=== PATIENT | male | born 1950 | race Caucasian/White ===

== ENCOUNTER 2019-11-17 19:36 | Inpatient (IN) | payer MEDICARE, MEDICAID, SELFPAY ==
[2019-11-17 19:49] VITALS: BP 117/61; PULSE 80; RESP 18; TEMP 36.8; O2SAT 100; BMI 20.7
--- NOTE | 2019-11-17 19:57 | XR_ITS ---
PROCEDURE: XR CHEST 2V CLINICAL HISTORY: generalized weakness COMPARISON: No exams were available for comparison FINDINGS: The cardiomediastinal silhouette and pulmonary vascularity are within normal limits. No lobar consolidation or collapse. There is a an ill-defined 7 mm opacity overlying the left upper lobe at the 1st interspace. This could be due to summation density or developing nodule. CT may provide further evaluation. The remaining lungs are clear. No acute bony abnormalities. IMPRESSION: 1. No acute finding. 2. Possible left upper lobe nodule. Follow-up suggested. Dictated by: Marlon Alfaro MD 11/18/2019 05:40 Marlon Alfaro MD in [place] 11/18/2019 05:40
[2019-11-17 20:17] LABS: Chloride 95 mmol/L (98-107); Potassium 3.2 mmoL/L (3.5-5.1); Sodium 135 mmol/L (136-145)
[2019-11-17 20:19] LABS: Alanine Aminotransferase 81 U/L (12-78); Aspartate Amino Transferase 102 U/L (17-59); Creatinine Clearance Estimated 17 mL/min (50-200); Estimated Glomerular Filt Rate 16 ml/min (>60); GFR (African American) 19 ML/MIN (>60)
[2019-11-17 20:20] LABS: Albumin Level 3.5 g/dl (3.5-5.0); Albumin/Globulin Ratio 1.1 (1.1-1.8); Alkaline Phosphatase 115 U/L (38-126); Anion Gap 20.2 mEq/L (5-15); Bilirubin,Total 0.8 mg/dl (0.2-1.3); Calcium 9.1 mg/dl (8.4-10.2); Carbon Dioxide 23 mmol/L (22.0-30.0); Globulin 3.2 g/dL (1.3-3.2); Glucose 153 mg/dl (74-100); Total Protein,Serum 6.7 g/dl (6.3-8.2)
[2019-11-17 20:24] LABS: Lactic Acid 1.8 mmol/L (0.7-2.1)
--- NOTE | 2019-11-17 20:30 | CT_ITS ---
PROCEDURE: CT HEAD/BRAIN WO CON CLINICAL INDICATION: altered mental status Altered mental status, altered level of consciousness, confusion, disorientation COMPARISON: No exams were available for comparison TECHNIQUE: Axial images obtained. All CT scans at the facility use one or more dose reduction, viz: automated exposure control, ma/kV adjustment per patient size (including targeted exams where dose is matched to indication, i.e. head), or iterative reconstruction technique. FINDINGS: No midline shift, mass effect, intracranial hemorrhage, hydrocephalus, or extra-axial fluid collection is evident. The calvarium has an unremarkable appearance. No mastoid effusion. No sinus air-fluid level. IMPRESSION: No acute intracranial finding Dictated by: Marlon Alfaro MD 11/18/2019 06:15 Marlon Alfaro MD in [facility] 11/18/2019 06:15
--- NOTE | 2019-11-17 20:30 | CT_ITS ---
PROCEDURE: CT ABDOMEN PELVIS WO CON CLINICAL INDICATION: decreased appetite h/o schizophrenia r/o volvulus COMPARISON: No exams were available for comparison TECHNIQUE: Axial images obtained with sagittal and coronal reformats. All CT scans at the facility use one or more dose reduction, viz: automated exposure control, ma/kV adjustment per patient size (including targeted exams where dose is matched to indication, i.e. head), or iterative reconstruction technique. FINDINGS: Study is limited without IV and oral contrast and secondary to patient's lack of body fat. LOWER THORAX: There are mild atelectatic changes in the lung bases. In the extreme left lung base posteriorly there is an 11 mm nodular opacity. ABDOMEN & PELVIS: The liver has an unremarkable appearance. The gallbladder is mildly distended with stones. The spleen and adrenal glands are unremarkable. Pancreas is not well delineated. There is bilateral hydronephrosis and hydroureter. No renal or ureteral calculi. There is extensive urinary bladder distension. The urinary bladder measures 20 5 cm cephalad caudad, 17 cm transverse, and up to 15 cm AP.. The urinary bladder distends approximately 9 cm above the level of the umbilicus. There are central prostatic calcifications with the prostate mildly enlarged at 5 cm. There is a moderate amount of retained colonic feces throughout the colon especially in the rectal region. The rectum measures up to 9 cm transverse.. The appendix is not clearly delineated.. No acute bony anomalies. There are degenerative changes in the lumbar spine. IMPRESSION: 1. Severe urinary bladder distension with moderate bilateral hydronephrosis and hydroureter 2. Distended gallbladder with cholelithiasis. 3. Constipation with suggestion of rectal fecal impaction 4. Indeterminate 11 mm nodule left lung base. Suggest 3 month follow-up Dictated by: Marlon Alfaro MD 11/18/2019 06:25 Marlon Alfaro MD in [facility] 11/18/2019 06:25
--- NOTE | 2019-11-17 20:36 | HMH.EDWEAK ---
ED Disposition Clinical Impression: Obstructive nephropathy due to benign prostatic hyperplasia Urinary tract infection Qualifiers: Urinary tract infection type: acute cystitis Hematuria presence: with hematuria Qualified Code(s): N30.01 - Acute cystitis with hematuria Hydronephrosis Qualifiers: Hydronephrosis type: unspecified Qualified Code(s): N13.30 - Unspecified hydronephrosis Disposition: Admitted As Inpatient Condition on Discharge: Fair - Critical Care Critical Care Time: No Attestation: On 11/17/19, the high probability of a clinically significant, sudden or life threatening deterioration of the following system(s) required my full and direct attention, intervention and personal management. The time I documented below is in addition to time spent performing reported procedures but includes the following listed in this critical care notation. Medical Decision Making - Medical Records Medical records reviewed: Yes: I reviewed the patient's medical records. - Paul Inquiry Pt receiving controlled substance: No (no) Vital Signs: 11/17/19 19:49 11/17/19 20:54 11/17/19 21:45 Temperature 98.3 F Temperature Source Oral Pulse Rate [Right] 80 77 64 Respiratory Rate 18 18 18 Blood Pressure [Right Arm] 117/61 131/82 123/44 L Blood Pressure Mean [Right Arm] 79 98 70 Blood Pressure Source [Right Arm] Automatic Cuff Blood Pressure Position [Right Arm] Supine 02 Sat by Pulse Oximetry 100 97 94 L Oxygen Delivery Method Room Air Room Air Room Air - Lab Data Lab Results 11/17/19 20:05: WBC 22.8 H*, RBC 3.70 L, Hgb 11.9 L, Hct 34.4 L, MCV 92.9, MCH 32.1 H, MCHC 34.6, RDW 13.9, Plt Count 95 L, MPV 9.0, Neut % (Auto) 93.6 H, Lymph % (Auto) 2.8 L, [place] % (Auto) 3.4, Eos % (Auto) 0.0 L, Baso % (Auto) 0.1, Neut # (Auto) 21.3 H, Lymph # (Auto) 0.6 L, [place] # (Auto) 0.8, Eos # (Auto) 0.0, Baso # (Auto) 0.0, Total Counted 100, Neutrophils % (Manual) 89 H, Lymphocytes % (Manual) 10, Monocytes % (Manual) 1 L, Platelet Estimate Normal, RBC Morphology Normal 11/17/19 20:05: Sodium 135 L, Potassium 3.2 L, Chloride 95 L, Carbon Dioxide 23, Anion Gap 20.2 H, BUN 107 H*, Creatinine 3.80 H, Estimated Creat Clear 17, Estimated GFR 16 L*, Est GFR ( Amer) 19 L*, Glucose 153 H, Calcium 9.1, Total Bilirubin 0.8, AST 102 H, ALT 81 H, Alkaline Phosphatase 115, Total Protein 6.7, Albumin 3.5, Globulin 3.2, Albumin/Globulin Ratio 1.1 11/17/19 20:05: Lactate 1.8 11/17/19 20:05: Magnesium 2.7 H, Total Creatine Kinase 394 H, Lipase 24 11/17/19 20:53: Urine Color Yellow, Urine Appearance Clear, Urine pH 6.0, Ur Specific [place] 1.020, Urine Protein 2+, Urine Glucose (UA) Negative, Urine Ketones Negative, Urine Blood 3+, Urine Nitrate Negative, Urine Bilirubin Negative, Urine Urobilinogen 0.2, Ur Leukocyte Esterase 2+ A, Urine RBC 5-10, Urine WBC Tntc, Ur Squamous Epith Cells Occasional, Urine Bacteria 4+ Result diagrams: 11/17/19 20:05 11/17/19 20:05 Orders (Tests/Meds): ED MEDICATIONS Generic Name Dose Route Start Last Admin Trade Name Freq PRN Reason Stop Dose Admin Acetaminophen 500 mg 11/17/19 21:49 Tylenol 500mg Tablet PO 12/17/19 21:48 ONCE PRN Mild to Moderate Pain Sodium Chloride 1,000 mls @ 999 mls/hr 11/17/19 20:00 11/17/19 20:00 Sod Chlor 0.9% 1000ml Bag IV 11/17/19 21:00 999 mls/hr .Q1H1M NILSON Administration Sodium Chloride 1,000 mls @ 999 mls/hr 11/17/19 21:15 11/17/19 21:39 Sod Chlor 0.9% 1000ml Bag IV 11/17/19 22:15 999 mls/hr .Q1H1M NILSON Administration Sodium Chloride 1,000 mls @ 100 mls/hr 11/17/19 22:00 Sod Chlor 0.9% 1000ml Bag IV 12/17/19 21:59 .Q10H NILSON Discontinued Medications Generic Name Dose Route Start Last Admin Trade Name Freq PRN Reason Stop Dose Admin Ceftriaxone Sodium 1 gm/ 50 mls @ 100 mls/hr 11/17/19 21:00 11/17/19 21:28 Sodium Chloride IV 11/17/19 21:29 100 mls/hr ONCE ONE Administration Protocol Lidocaine HCl 10
[2019-11-17 20:49] LABS: Blood Urea Nitrogen 107 mg/dl (9-20)
--- NOTE | 2019-11-17 20:49 | ECG_ITS ---
APPROVED REPORT Exam: Resting ECG HR:77 bpm ECG Measurements Heart Rate 77 AXES MD 178 P 68 QRSd 112 QRS 22 QT 332 T -24 QTc 375 <Conclusion> Normal sinus rhythm Possible Inferior infarct, age undetermined Abnormal ECG Electronically signed by : Arnold Macias, 11/18/2019 06:31:19
[2019-11-17 20:53] LABS: Basophils % 0.1 % (0.1-2.0); Hematocrit 34.4 % (42.0-52.0); Hemoglobin 11.9 g/dL (14.1-18.0); Lymphocytes # 0.6 K/mm3 (0.7-4.5); Lymphocytes % 2.8 % (10-50); Mean Corpuscular HGB Conc 34.6 g/dL (31.8-35.4); Mean Corpuscular Hemoglobin 32.1 pg (27.0-31.2); Mean Corpuscular Volume 92.9 fl (80-94); Monocytes # 0.8 K/mm3 (0.1-1.0); Monocytes % 3.4 % (1.7-9.3); Neutrophils # 21.3 K/mm3 (1.8-7.8); Neutrophils % 93.6 % (37.0-80.0); Platelet Count 95 K/mm3 (142-424); Red Cell Distribution Width 13.9 % (11.5-17.5); White Blood Count 22.8 K/mm3 (4.8-10.8)
[2019-11-17 20:54] VITALS: BP 131/82; PULSE 77; RESP 18; O2SAT 97
[2019-11-17 20:55] LABS: Microscopic, Urine URINE MICROSCOPIC (MICROSCOPIC)
[2019-11-17 20:55] LABS: MANUAL DIFFERENTIAL MANUAL DIFFERENTIAL (MANUAL DIFF)
[2019-11-17 20:57] LABS: Appearance,Urine CLEAR (Clear); Bilirubin,Urine Negative (Negative); Blood, Urine 3+ (Negative); Color,Urine YELLOW (Yellow); Glucose,Urine (UA) Negative (Negative); Ketones,Urine Negative (Negative); Leukocyte Esterase,Urine 2+ (Negative); Nitrate,Urine Negative (Negative); Protein,Urine 2+ (Negative); Urobilinogen,Urine 0.2 EU/dl (0.2)
--- NOTE | 2019-11-17 21:03 | PC.NURSE ---
pt to ct
[2019-11-17 21:12] LABS: Creatine Kinase 394 U/L (55-170); Lipase 24 U/L (23-300); Lymphocytes % 10 % (10-50); Monocytes % 1 % (2-9); Neutrophils % 89 % (42-76); Total Cells Counted 100
[2019-11-17 21:13] LABS: Magnesium 2.7 mg/dl (1.6-2.3)
[2019-11-17 21:14] LABS: Platelet Estimate Normal; RBC Morphology Normal
[2019-11-17 21:21] LABS: Squamous Epithelial Cell,Urine Occasional #/hpf (0-5); WBC,Urine TNTC #/hpf (0-3)
[2019-11-17 21:22] LABS: Bacteria,Urine 4+ /lpf
--- NOTE | 2019-11-17 21:39 | PC.NURSE ---
Dr. Khoury paged
--- NOTE | 2019-11-17 21:39 | PC.NURSE ---
speaking with Dr. Khoury
--- NOTE | 2019-11-17 21:43 | PC.NURSE ---
2700ml emptied out of navarro at this time
--- NOTE | 2019-11-17 21:44 | PC.NURSE ---
Notified house of admission
[2019-11-17 21:45] VITALS: BP 123/44; PULSE 64; RESP 18; O2SAT 94
[2019-11-17 22:19] LABS: Coronavirus 19 IgM Antibody Negative (Negative)
[2019-11-17 22:23] LABS: Coronavirus 19 IgG Antibody Positive (Negative)
[2019-11-17 22:32] VITALS: BP 105/74; PULSE 80; RESP 18; O2SAT 94
[2019-11-17 22:50] VITALS: BP 105/74; PULSE 70; RESP 16; TEMP 36.9; O2SAT 98
[2019-11-17 23:18] VITALS: BP 112/71; PULSE 78; RESP 20; TEMP 36.9; O2SAT 94; O2SAT 96; BMI 16.1
--- NOTE | 2019-11-17 23:25 | PC.NURSE ---
PT ARRIVED TO FLOOR VIA W/C FROM ED AT 2318.
--- NOTE | 2019-11-18 00:03 | PC.NURSE ---
Pt poor historian during admission assessment. Pt unsure on what medication he takes and when asked what medical history he has pt states the usual . Unable to get pt to clarify history or medication. This RN went over code status with pt and he states he is only ok with IV fluids. Will have form signed and placed on chart.
[2019-11-18 04:00] VITALS: BP 111/56; PULSE 70; RESP 16; TEMP 37.2; O2SAT 94
[2019-11-18 05:13] VITALS: BMI 16.2
[2019-11-18 06:15] LABS: Basophils % 0.1 % (0.1-2.0); Monocytes # 0.8 K/mm3 (0.1-1.0)
[2019-11-18 06:21] LABS: Chloride 103 mmol/L (98-107); Potassium 3.2 mmoL/L (3.5-5.1); Sodium 134 mmol/L (136-145)
[2019-11-18 06:24] LABS: Anion Gap 12.2 mEq/L (5-15); Carbon Dioxide 22 mmol/L (22.0-30.0); Creatinine Clearance Estimated 17 mL/min (50-200); Estimated Glomerular Filt Rate 21 ml/min (>60); GFR (African American) 25 ML/MIN (>60)
[2019-11-18 06:25] LABS: Glucose 136 mg/dl (74-100)
[2019-11-18 06:36] LABS: Hematocrit 29.7 % (42.0-52.0); Lymphocytes # 0.6 K/mm3 (0.7-4.5); Lymphocytes % 2.9 % (10-50); Mean Corpuscular HGB Conc 34.3 g/dL (31.8-35.4); Mean Corpuscular Hemoglobin 32.2 pg (27.0-31.2); Mean Corpuscular Volume 93.9 fl (80-94); Mean Platelet Volume 9.2 fl (7.4-10.4); Monocytes % 3.8 % (1.7-9.3); Neutrophils # 20.5 K/mm3 (1.8-7.8); Neutrophils % 93.2 % (37.0-80.0); Platelet Count 79 K/mm3 (142-424); Red Blood Count 3.16 M/mm3 (4.60-6.20); Red Cell Distribution Width 14.1 % (11.5-17.5)
[2019-11-18 06:39] LABS: Hemoglobin 10.2 g/dL (14.1-18.0)
[2019-11-18 06:40] LABS: MANUAL DIFFERENTIAL MANUAL DIFFERENTIAL (MANUAL DIFF)
[2019-11-18 06:42] LABS: Calcium 7.5 mg/dl (8.4-10.2)
[2019-11-18 06:43] LABS: Blood Urea Nitrogen 94 mg/dl (9-20)
--- NOTE | 2019-11-18 07:23 | P.CONPHA_ITS ---
[facility] Pharmacy VTE Monitoring - Patient Demographics Admission date: 11/17/19 Report Date: 11/18/19 Time: 07:23 Allergies/Adverse Reactions: Patient Allergies No Known Allergies Allergy (Verified 03/28/19 10:51) Height: 1.75 m Weight: 49.555 kg Patient Problems: Current Active Problems Obstructive nephropathy due to benign prostatic hyperplasia (Acute) Urinary tract infection (Acute) Hydronephrosis (Acute) - VTE Risk Labs: VTE Related Lab Results Hgb 10.2 g/dL (14.1-18.0) L D 11/18/19 05:50 Hct 29.7 % (42.0-52.0) L 11/18/19 05:50 Plt Count 79 K/mm3 (142-424) L 11/18/19 05:50 BUN 94 mg/dl (9-20) H 11/18/19 05:50 Creatinine 3.00 mg/dl (0.66-1.25) H D 11/18/19 05:50 Estimated Creat Clear 17 mL/min (50-200) 11/18/19 05:50 Was VTE Risk Assessment Performed: Yes VTE Score: 2 VTE Risk Level: Very Low Risk - Prophylaxis VTE Prophylaxis Ordered?: Yes Types of VTE Prophylaxis: TEDS Knee High Location of Applied Device: Bilateral Lower Extremeties - VTE Diagnosis Confirmed Treatment or plan recommended: Continue Current Treatment
[2019-11-18 07:58] LABS: Lymphocytes % 5 % (10-50); Monocytes % 2 % (2-9); Neutrophils % 93 % (42-76); Platelet Estimate Moderate Decrease; Total Cells Counted 100
[2019-11-18 07:59] LABS: RBC Morphology Normal
[2019-11-18 08:00] VITALS: BP 148/69; PULSE 93; RESP 16; TEMP 37.4; O2SAT 93
--- NOTE | 2019-11-18 11:01 | HMH.PHAINT ---
MEDICATION RECONCILIATION COMPLETED ON PATIENT USING EXTERNAL FILL HISTORY FROM PHARMACY. -EDISON CHERY, ELIZAD
--- NOTE | 2019-11-18 11:09 | PC.NURSE ---
late entry 1040: received call from Ashley in lab stating that blood cx are positive for ecoli gram negative rods. 1045: called Dr. Khoury' office. Spoke to Chelo. Updated her. She will relay message to Dr. Khoury.
[2019-11-18 14:25] VITALS: BMI 16.3
--- NOTE | 2019-11-18 14:30 | PC.NURSE ---
Dr. Benavides @ [facility]. Pt to go home with navarro catheter. Dr. Benavides to perform cystoscopy next wk.
--- NOTE | 2019-11-18 14:51 | HMH.CONS ---
*Admission Date: 11/17/19 *Reason for consult:: Bladder distention and bilateral hydronephrosis *History of present illness: Schizophrenia presents with a 4-day history of weakness and failure to thrive. He is a resident of a personal shelter in [place]. Blood work showed a creatinine of 3.8 and a white count of 22,000. CT scan showed a markedly distended bladder and bilateral hydronephrosis. Brunner catheter was placed with report of [address] scan also showed the prostate was mildly enlarged at 5 cm with some prostatic calcifications. There is also moderate amount of retained colonic stool throughout the colon especially in the rectal region. Patient's creatinine is down to 3.0 today after bladder drainage. Patient is a poor historian but does give a history of prior difficulty voiding. He states he has seen a urologist before but is not sure where. He is on tamsulosin. Patient is also on oxybutynin 5 mg twice daily. [facility] History Medical History: Denies:: Cancer, Diabetes Mellitus Type 1, Diabetes Mellitus Type 2, MRSA *Have you ever received a pneumonia vaccine?: Yes *Have you received a flu vaccine this season?: Yes Other Medical History: Reports: Other (schizophrenia) Amputation: No Fractures: No - *Social History Alcohol Intake: never *Occupational Status:: disabled Housing: assisted living facility *Travel in the last 8 weeks: None Family Hx:: Unable to obtain Review of Systems - Review of Systems Review of systems:: pertinent systems reviewed and negative unless documented below Meds Home Medications Medication Instructions Recorded Confirmed Type Benztropine Mesylate [Cogentin 1mg 1 mg PO BID 03/28/19 11/17/19 History tablet] Fluticasone Propionate [Flonase 1 spray NS DAILY 03/28/19 11/17/19 History Allergy Relief NS] Hydroxychloroquine Sulfate 200 mg PO DAILY 03/28/19 11/17/19 History [Plaquenil 200mg tablet] OXcarbazepine [Oxcarbazepine] 300 mg PO BID 03/28/19 11/17/19 History Oxybutynin Chloride 5 mg PO BID 03/28/19 11/17/19 History Tamsulosin HCl 0.4 mg PO HS 03/28/19 11/17/19 History clonazePAM [Klonopin 1mg tablet] 1 mg PO TIDP PRN 03/28/19 11/18/19 History Cholecalciferol (Vitamin D3) 1,000 unit PO DAILY 11/17/19 11/17/19 History [Vitamin D3 1,000 Unit Cap] Loratadine [Claritin] 10 mg PO DAILY 11/17/19 11/17/19 History hydrOXYzine pamoate [Vistaril 25mg 25 mg PO Q8HP PRN 11/17/19 11/18/19 History capsule] Aspirin [Aspirin 81mg EC Tab] 81 mg PO DAILY 11/18/19 11/18/19 History Famotidine 40 mg PO DAILY 11/18/19 11/18/19 History Mirtazapine [Remeron] 15 mg PO HS 11/18/19 11/18/19 History OLANZapine [Zyprexa] 10 mg PO HS 11/18/19 11/18/19 History Allergies Allergy/AdvReac Type Severity Reaction Status Date / Time No Known Allergies Allergy Verified 03/28/19 10:51 Exam Vital signs and Labs for Last 24 Hours: Temp Pulse Resp BP Pulse Ox 99.4 F 93 H 16 148/69 H 93 L 11/18/19 08:00 11/18/19 08:00 11/18/19 08:00 11/18/19 08:00 11/18/19 08:00 Laboratory Results - last 24 hr 11/17/19 20:05: WBC 22.8 H*, RBC 3.70 L, Hgb 11.9 L, Hct 34.4 L, MCV 92.9, MCH 32.1 H, MCHC 34.6, RDW 13.9, Plt Count 95 L, MPV 9.0, Neut % (Auto) 93.6 H, Lymph % (Auto) 2.8 L, [place] % (Auto) 3.4, Eos % (Auto) 0.0 L, Baso % (Auto) 0.1, Neut # (Auto) 21.3 H, Lymph # (Auto) 0.6 L, [place] # (Auto) 0.8, Eos # (Auto) 0.0, Baso # (Auto) 0.0, Total Counted 100, Neutrophils % (Manual) 89 H, Lymphocytes % (Manual) 10, Monocytes % (Manual) 1 L, Platelet Estimate Normal, RBC Morphology Normal 11/17/19 20:05: Sodium 135 L, Potassium 3.2 L, Chloride 95 L, Carbon Dioxide 23, Anion Gap 20.2 H, BUN 107 H*, Creatinine 3.80 H, Estimated Creat Clear 17, Estimated GFR 16 L*, Est GFR ( Amer) 19 L*, Glucose 153 H, Calcium 9.1, Total Bilirubin 0.8, AST 102 H, ALT 81 H, Alkaline Phosphatase 115, Total Protein 6.7, Albumin 3.5, Globulin 3.2, Albumin/Globulin Ratio 1.1 11/17/19 20:05: Lactate 1.8 11/17/19
[2019-11-18 16:00] VITALS: BP 140/97; PULSE 80; RESP 18; TEMP 36.9; O2SAT 100
--- NOTE | 2019-11-18 18:41 | HMH.HP ---
*Admission Date: 11/17/19 *History of present illness: Patient is a 69-year-old male with history of schizophrenia currently taking Haldol and Klonopin presenting due to weakness and decreased p.o. intake. Patient states over the past 4 days he has had decreased p.o. intake secondary to decreased appetite. No specific abdominal pain, fever/chills, urination changes, nausea/vomiting, diarrhea/constipation. Caregiver at the bedside also states patient has had increased difficulty walking around. Typically he is able to walk on his own/with a cane and has been much slower over the past several days and has had multiple ground-level falls without any injuries sustained. Patient also currently specifically denies chest pain, shortness of breath, fever/chills, sick contacts. Patient has been in quarantine for the past 14 days. He presents from a personal assisted. CT abdomen performed in ER IMPRESSION: 1. Severe urinary bladder distension with moderate bilateral hydronephrosis and hydroureter 2. Distended gallbladder with cholelithiasis. 3. Constipation with suggestion of rectal fecal impaction 4. Indeterminate 11 mm nodule left lung base. Suggest 3 month follow-up Given iv rocephin, navarro placed, and admitted for further evaluation and treatment [facility] History Medical History: Denies:: Cancer, Diabetes Mellitus Type 1, Diabetes Mellitus Type 2, MRSA *Have you ever received a pneumonia vaccine?: Yes *Have you received a flu vaccine this season?: Yes Other Medical History: Reports: Other (schizophrenia) Amputation: No Fractures: No - *Social History Alcohol Intake: never *Occupational Status:: disabled Housing: assisted living facility *Travel in the last 8 weeks: None Family Hx:: Unable to obtain Review of Systems - Constitutional Reports weakness - Eyes Denies change in vision - ENT Reports dizziness - *Cardiovascular Denies chest pain - *Respiratory Denies cough - *Gastrointestinal Denies coffee ground vomit, Denies bright, red blood in stools - *Genitourinary Reports difficulty urinating, Reports decreased urination - *Musculoskeletal Reports abnormal walking - Integumentary/Breasts Denies yellowing of the skin - *Neurologic Reports unsteadiness, Reports weakness - Psychiatric Reports behavioral changes - Endocrine Denies increased thirst - Hematologic/Lymphatic Denies easy bleeding - Allergic/Immunologic Denies hives Meds Home Medications Medication Instructions Recorded Confirmed Type Benztropine Mesylate [Cogentin 1mg 1 mg PO BID 03/28/19 11/17/19 History tablet] Fluticasone Propionate [Flonase 1 spray NS DAILY 03/28/19 11/17/19 History Allergy Relief NS] Hydroxychloroquine Sulfate 200 mg PO DAILY 03/28/19 11/17/19 History [Plaquenil 200mg tablet] OXcarbazepine [Oxcarbazepine] 300 mg PO BID 03/28/19 11/17/19 History Oxybutynin Chloride 5 mg PO BID 03/28/19 11/17/19 History Tamsulosin HCl 0.4 mg PO HS 03/28/19 11/17/19 History clonazePAM [Klonopin 1mg tablet] 1 mg PO TIDP PRN 03/28/19 11/18/19 History Cholecalciferol (Vitamin D3) 1,000 unit PO DAILY 11/17/19 11/17/19 History [Vitamin D3 1,000 Unit Cap] Loratadine [Claritin] 10 mg PO DAILY 11/17/19 11/17/19 History hydrOXYzine pamoate [Vistaril 25mg 25 mg PO Q8HP PRN 11/17/19 11/18/19 History capsule] Aspirin [Aspirin 81mg EC Tab] 81 mg PO DAILY 11/18/19 11/18/19 History Famotidine 40 mg PO DAILY 11/18/19 11/18/19 History Mirtazapine [Remeron] 15 mg PO HS 11/18/19 11/18/19 History OLANZapine [Zyprexa] 10 mg PO HS 11/18/19 11/18/19 History Allergies Allergy/AdvReac Type Severity Reaction Status Date / Time No Known Allergies Allergy Verified 03/28/19 10:51 Exam Vital signs and Labs for Last 24 Hours: Temp Pulse Resp BP Pulse Ox 98.4 F 80 18 140/97 H 100 11/18/19 16:00 11/18/19 16:00 11/18/19 16:00 11/18/19 16:00 11/18/19 16:00 Laboratory Results - last 24
--- NOTE | 2019-11-18 19:11 | PC.NURSE ---
report given to angelique
[2019-11-18 19:53] VITALS: BP 149/80; PULSE 73; RESP 16; TEMP 36.4; O2SAT 98
--- NOTE | 2019-11-19 02:59 | PC.NURSE ---
Pt is alert to self. lungs CTA. pt denies any pain or SOA. pt has ambulated around room earlier in shift. F/C patent draining yellow urine. pt has slept quietly throughout shift.
[2019-11-19 04:00] VITALS: BP 142/89; PULSE 78; RESP 14; TEMP 36.8; O2SAT 99
[2019-11-19 04:59] VITALS: BMI 16.8
[2019-11-19 06:55] LABS: Eosinophils # 0.1 K/mm3 (0.0-0.4); Eosinophils % 0.3 % (0.1-12.0); Hematocrit 31.8 % (42.0-52.0); Hemoglobin 10.6 g/dL (14.1-18.0); Lymphocytes # 0.6 K/mm3 (0.7-4.5); Lymphocytes % 2.9 % (10-50); Mean Corpuscular HGB Conc 33.4 g/dL (31.8-35.4); Mean Corpuscular Volume 95.6 fl (80-94); Mean Platelet Volume 9.6 fl (7.4-10.4); Monocytes # 1.1 K/mm3 (0.1-1.0); Neutrophils # 19.5 K/mm3 (1.8-7.8); Neutrophils % 91.8 % (37.0-80.0); Red Blood Count 3.32 M/mm3 (4.60-6.20); Red Cell Distribution Width 14.1 % (11.5-17.5); White Blood Count 21.3 K/mm3 (4.8-10.8)
[2019-11-19 07:01] LABS: Platelet Count 42 K/mm3 (142-424)
[2019-11-19 07:02] LABS: Chloride 106 mmol/L (98-107); MANUAL DIFFERENTIAL MANUAL DIFFERENTIAL (MANUAL DIFF); Sodium 138 mmol/L (136-145)
[2019-11-19 07:04] LABS: Alanine Aminotransferase 50 U/L (12-78); Aspartate Amino Transferase 44 U/L (17-59); Blood Urea Nitrogen 62 mg/dl (9-20); Creatinine Clearance Estimated 27 mL/min (50-200); Estimated Glomerular Filt Rate 35 ml/min (>60); GFR (African American) 43 ML/MIN (>60)
[2019-11-19 07:05] LABS: Albumin Level 2.2 g/dl (3.5-5.0); Albumin/Globulin Ratio 0.9 (1.1-1.8); Alkaline Phosphatase 94 U/L (38-126); Anion Gap 11.7 mEq/L (5-15); Bilirubin,Total 0.5 mg/dl (0.2-1.3); Calcium 7.6 mg/dl (8.4-10.2); Carbon Dioxide 23 mmol/L (22.0-30.0); Globulin 2.4 g/dL (1.3-3.2); Glucose 127 mg/dl (74-100); Total Protein,Serum 4.6 g/dl (6.3-8.2)
--- NOTE | 2019-11-19 07:17 | PC.NURSE ---
received notification results of platelets of 42 reported oncoming nurse Laurita lord RN
[2019-11-19 07:21] LABS: Potassium 2.7 mmoL/L (3.5-5.1)
[2019-11-19 08:00] VITALS: BP 154/70; PULSE 80; RESP 18; TEMP 36.9; O2SAT 96
[2019-11-19 08:42] LABS: Acanthocytes 1+; Eosinophils % 3 % (0-3); Lymphocytes % 4 % (10-50); Monocytes % 5 % (2-9); Neutrophils % 88 % (42-76); Platelet Estimate Moderate Decrease; Poikilocytosis 1+; Total Cells Counted 100
--- NOTE | 2019-11-19 13:49 | HMH.ACPN2 ---
Internal Medicine - PN: Subj *Date: 11/19/19 *Time: 14:00 Interval history: clinically looking much improved more alert tmax 99.4 getting run of k renal function improving uc=non-esbl ecoli bc positive rocephin on board 2 grams qd iv Exam Vital signs and Labs for Last 24 Hours: Temp Pulse Resp BP Pulse Ox 98.4 F 80 18 154/70 H 96 11/19/19 08:00 11/19/19 08:00 11/19/19 08:00 11/19/19 08:00 11/19/19 08:00 Laboratory Results - last 24 hr 11/19/19 06:23: WBC 21.3 H*, RBC 3.32 L, Hgb 10.6 L, Hct 31.8 L, MCV 95.6 H, MCH 32.0 H, MCHC 33.4, RDW 14.1, Plt Count 42 L* D, MPV 9.6, Neut % (Auto) 91.8 H, Lymph % (Auto) 2.9 L, [place] % (Auto) 5.0, Eos % (Auto) 0.3, Baso % (Auto) 0.0 L, Neut # (Auto) 19.5 H, Lymph # (Auto) 0.6 L, [place] # (Auto) 1.1 H, Eos # (Auto) 0.1, Baso # (Auto) 0.0, Total Counted 100, Neutrophils % (Manual) 88 H, Lymphocytes % (Manual) 4 L, Monocytes % (Manual) 5, Eosinophils % (Manual) 3, Platelet Estimate Moderate decrease, Poikilocytosis 1+, Acanthocytes (Spur) 1+ 11/19/19 06:23: Sodium 138, Potassium 2.7 L*, Chloride 106, Carbon Dioxide 23, Anion Gap 11.7, BUN 62 H D, Creatinine 1.90 H D, Estimated Creat Clear 27, Estimated GFR 35 L, Est GFR ( Amer) 43 L D, Glucose 127 H, Calcium 7.6 L, Total Bilirubin 0.5, AST 44 D, ALT 50 D, Alkaline Phosphatase 94, Total Protein 4.6 L D, Albumin 2.2 L D, Globulin 2.4, Albumin/Globulin Ratio 0.9 L I & O for Last 24 hours: Intake & Output 11/16/19 11/17/19 11/18/19 11/19/19 23:59 23:59 23:59 23:59 Intake Total 1000 / 1000 3914 / 3914 2081 / 2082 Output Total 2700 / 2700 1850 / 2450 1300 / 1300 Balance -1700 / -1700 2064 / 1464 782 / 782 Weight 109 lb 4 oz 110 lb 3.698 oz 113 lb 9 oz Microbiology Reports for the Last 24 Hours: Microbiology 11/17/19 20:08 Blood Blood Culture - Preliminary Gram Negative Rods 11/17/19 20:08 Blood Blood Culture - Preliminary Gram Negative Rods 11/17/19 20:53 Urine,Clean Catch Urine Culture - Final Escherichia coli - Constitutional no acute distress, thin - *Routine HEENT Exam Head: Present: normocephalic Eye: Present: EOMI, PERRL ENT: Present: mucous membranes moist - *Routine Neck Exam Present: supple. Absent: lymphadenopathy - *Routine Respiratory Exam Present: CTA bilaterally - *Routine Cardiovascular Exam Present: RRR - *Routine Abdominal Exam Present: soft, normoactive bowel sounds. Absent: tenderness - *Routine Extremities Exam Absent: cyanosis, clubbing, edema - *Routine Skin Exam Present: warm. Absent: rash - *Routine Neurological Exam Present: alert, vision grossly intact, hearing grossly intact. Absent: facial asymmetry Assessment and Plan (1) Obstructive nephropathy due to benign prostatic hyperplasia Current visit: Yes Status: Acute Category: Medical Code(s): N40.1 - Benign prostatic hyperplasia with lower urinary tract symptoms; N13.8 - Other obstructive and reflux uropathy (2) Leukocytosis Current visit: Yes Status: Acute Category: Medical Code(s): D72.829 - Elevated white blood cell count, unspecified (3) Acute renal failure Current visit: Yes Status: Acute Category: Medical Code(s): N17.9 - Acute kidney failure, unspecified (4) Gram-negative bacteremia Current visit: Yes Status: Acute Category: Medical Code(s): R78.81 - Bacteremia (5) Urinary tract infection Current visit: Yes Status: Acute Qualifiers: Urinary tract infection type: acute cystitis Hematuria presence: with hematuria Qualified Code(s): N30.01 - Acute cystitis with hematuria Category: Medical Code(s): N39.0 - Urinary tract infection, site not specified (6) Chronic schizophrenia Current visit: No Status: Acute Category: Medical Code(s): F20.9 - Schizophrenia, unspecified (7) Protein calorie malnutrition Current visit: Yes Status: Acut
[2019-11-19 15:45] VITALS: BP 137/61; PULSE 56; RESP 18; TEMP 36.9; O2SAT 100
--- NOTE | 2019-11-19 16:33 | PC.NURSE ---
PT IS RESTING IN BED. NO COMPLAINTS OF DISCOMFORT. PT IS ALERT TO SELF/PLACE BUT COULD NOT REMEMBER THE MONTH/DAY OF THE WEEK. LUNG SOUNDS CLEAR. BOWEL SOUNDS NORMAL. VSS. EATING AND DRINKING FAIR. PHYSICIAN CORE INSPECTOR WAS NOTIFIED OF CRITICAL LAB RESULTS THIS MORNING. PHYSICIAN ORDERED A TOTAL OF 40 MEQ OF IV POTASSIUM. WILL CONTINUE TO MONITOR.
[2019-11-19 19:42] VITALS: BP 119/73; PULSE 59; RESP 18; TEMP 36.8; O2SAT 92
[2019-11-19 20:00] VITALS: O2SAT 92
[2019-11-20 04:00] VITALS: BP 146/60; PULSE 56; RESP 17; TEMP 36.7; O2SAT 96
[2019-11-20 05:00] VITALS: BMI 16.8
--- NOTE | 2019-11-20 06:47 | PC.NURSE ---
No acute changes during this shift. Brunner remains patent w/ clear, dark yellow urine.
[2019-11-20 06:55] LABS: Basophils % 0.1 % (0.1-2.0); Eosinophils # 0.2 K/mm3 (0.0-0.4); Eosinophils % 0.9 % (0.1-12.0); Hematocrit 31.1 % (42.0-52.0); Hemoglobin 10.5 g/dL (14.1-18.0); Lymphocytes # 0.7 K/mm3 (0.7-4.5); Lymphocytes % 3.5 % (10-50); Mean Corpuscular HGB Conc 33.7 g/dL (31.8-35.4); Mean Corpuscular Hemoglobin 31.5 pg (27.0-31.2); Mean Corpuscular Volume 93.4 fl (80-94); Mean Platelet Volume 10.4 fl (7.4-10.4); Monocytes # 0.8 K/mm3 (0.1-1.0); Monocytes % 4.3 % (1.7-9.3); Neutrophils # 17.8 K/mm3 (1.8-7.8); Neutrophils % 91.1 % (37.0-80.0); Red Blood Count 3.33 M/mm3 (4.60-6.20); Red Cell Distribution Width 14.3 % (11.5-17.5); White Blood Count 19.6 K/mm3 (4.8-10.8)
[2019-11-20 07:05] LABS: MANUAL DIFFERENTIAL MANUAL DIFFERENTIAL (MANUAL DIFF); Platelet Count 41 K/mm3 (142-424)
[2019-11-20 07:13] LABS: Anion Gap 6.6 mEq/L (5-15); Blood Urea Nitrogen 39 mg/dl (9-20); Calcium 7.5 mg/dl (8.4-10.2); Carbon Dioxide 27 mmol/L (22.0-30.0); Chloride 108 mmol/L (98-107); Creatinine Clearance Estimated 37 mL/min (50-200); Estimated Glomerular Filt Rate 50 ml/min (>60); GFR (African American) 61 ML/MIN (>60); Glucose 118 mg/dl (74-100); Sodium 139 mmol/L (136-145)
[2019-11-20 07:19] LABS: Potassium 2.6 mmoL/L (3.5-5.1)
[2019-11-20 07:21] LABS: Lymphocytes % 3 % (10-50); Neutrophils % 89 % (42-76); Platelet Estimate Marked Decrease; RBC Morphology Normal; Total Cells Counted 100
[2019-11-20 08:00] VITALS: BP 144/71; PULSE 64; RESP 20; TEMP 36.9; O2SAT 100
--- NOTE | 2019-11-20 09:03 | PC.NURSE ---
DURING ASSESSMENT THIS MORNING PT AMBULATED TO THE BATHROOM AND A SMALL STAGE 2 WAS NOTED TO THE COCCYX AND REDNESS TO THE BUTTOCKS. PT DID NOT WANT TO SIT UP IN THE CHAIR YESTERDAY AT ALL. AFTER PT WENT TO THE BATHROOM HE WAS ENCOURAGED TO SIT UP IN THE RECLINER MUCH POSSIBLE THIS SHIFT AND TRY TO AVOID RESTING IN THE BED DURING THE DAY AND WHILE HE WAS IN THE BED STAFF WILL ENCOURAGE PT TO TURN AND REPOSITION MUCH POSSIBLE.
--- NOTE | 2019-11-20 13:53 | HMH.ACPN2 ---
Internal Medicine - PN: Subj *Date: 11/20/19 *Time: 13:53 Interval history: uneventful night afebrile bp stable will need another run of k Exam Vital signs and Labs for Last 24 Hours: Temp Pulse Resp BP Pulse Ox 98.5 F 64 20 144/71 H 100 11/20/19 08:00 11/20/19 08:00 11/20/19 08:00 11/20/19 08:00 11/20/19 08:00 Laboratory Results - last 24 hr 11/20/19 06:30: WBC 19.6 H, RBC 3.33 L, Hgb 10.5 L, Hct 31.1 L, MCV 93.4, MCH 31.5 H, MCHC 33.7, RDW 14.3, Plt Count 41 L*, MPV 10.4, Neut % (Auto) 91.1 H, Lymph % (Auto) 3.5 L, [place] % (Auto) 4.3, Eos % (Auto) 0.9, Baso % (Auto) 0.1, Neut # (Auto) 17.8 H, Lymph # (Auto) 0.7, [place] # (Auto) 0.8, Eos # (Auto) 0.2, Baso # (Auto) 0.0, Total Counted 100, Neutrophils % (Manual) 89 H, Band Neutrophils % 8.0, Lymphocytes % (Manual) 3 L, Platelet Estimate Marked decrease, RBC Morphology Normal 11/20/19 06:30: Sodium 139, Potassium 2.6 L*, Chloride 108 H, Carbon Dioxide 27, Anion Gap 6.6, BUN 39 H D, Creatinine 1.40 H D, Estimated Creat Clear 37, Estimated GFR 50 L, Est GFR ( Amer) 61 D, Glucose 118 H, Calcium 7.5 L I & O for Last 24 hours: Intake & Output 11/17/19 11/18/19 11/19/19 11/20/19 23:59 23:59 23:59 23:59 Intake Total 1000 / 1000 3914 / 3914 3774 / 3774 1476 / 1476 Output Total 2700 / 2700 1850 / 2450 3300 / 3300 2350 / 2350 Balance -1700 / -1700 2064 / 1464 474 / 474 -874 / -874 Weight 109 lb 4 oz 110 lb 3.698 oz 113 lb 9 oz 113 lb 9.068 oz Microbiology Reports for the Last 24 Hours: Microbiology 11/17/19 20:08 Blood Blood Culture - Preliminary Escherichia coli 11/17/19 20:08 Blood Blood Culture - Preliminary Escherichia coli - Constitutional no acute distress, thin - *Routine HEENT Exam Head: Present: normocephalic Eye: Present: EOMI, PERRL ENT: Present: mucous membranes moist - *Routine Neck Exam Present: supple. Absent: lymphadenopathy - *Routine Respiratory Exam Present: CTA bilaterally - *Routine Cardiovascular Exam Present: RRR - *Routine Abdominal Exam Present: soft, normoactive bowel sounds. Absent: tenderness - *Routine Extremities Exam Absent: cyanosis, clubbing, edema - *Routine Skin Exam Present: warm. Absent: rash - *Routine Neurological Exam Present: alert, oriented X3 Assessment and Plan (1) E. coli septicemia Current visit: Yes Status: Acute Category: Medical Code(s): A41.51 - Sepsis due to Escherichia coli [E. coli] (2) Obstructive nephropathy due to benign prostatic hyperplasia Current visit: Yes Status: Acute Category: Medical Code(s): N40.1 - Benign prostatic hyperplasia with lower urinary tract symptoms; N13.8 - Other obstructive and reflux uropathy (3) Leukocytosis Current visit: Yes Status: Acute Category: Medical Code(s): D72.829 - Elevated white blood cell count, unspecified (4) Acute renal failure Current visit: Yes Status: Acute Category: Medical Code(s): N17.9 - Acute kidney failure, unspecified (5) Gram-negative bacteremia Current visit: Yes Status: Acute Category: Medical Code(s): R78.81 - Bacteremia (6) Urinary tract infection Current visit: Yes Status: Acute Qualifiers: Urinary tract infection type: acute cystitis Hematuria presence: with hematuria Qualified Code(s): N30.01 - Acute cystitis with hematuria Category: Medical Code(s): N39.0 - Urinary tract infection, site not specified (7) Chronic schizophrenia Current visit: No Status: Acute Category: Medical Code(s): F20.9 - Schizophrenia, unspecified (8) Protein calorie malnutrition Current visit: Yes Status: Acute Category: Medical Code(s): E46 - Unspecified protein-calorie malnutrition (9) Protein-calorie malnutrition, severe Current visit: Yes Status: Acute Category: Medical Code(s): E43 - Unspecified severe protein-calorie malnutrition (10) Cholelithiasis Current visit:
[2019-11-20 15:35] VITALS: BP 134/62; PULSE 89; RESP 20; TEMP 37.2; O2SAT 95
--- NOTE | 2019-11-20 18:23 | PC.NURSE ---
PT IS SITTING UP IN THE CHAIR. PT HAS AMBULATED TO THE BATHROOM AND AROUND THE ROOM THIS SHIFT. NO COMPLAINTS OF DISCOMFORT. SMALL STAGE 2 NOTED TO THE COCCYX WITH DRESSING INTACT. SHOWER AND LINEN CHANGE THIS SHIFT. LUNG SOUNDS CLEAR. BOWEL SOUNDS NORMAL. PT HAS NOT BEEN EATING MUCH THIS SHIFT BUT DID DRINK SOME VANILLA ENSURE. VSS. WILL CONTINUE TO MONITOR.
[2019-11-20 19:46] VITALS: BP 162/71; PULSE 99; RESP 16; TEMP 36.4; O2SAT 93
--- NOTE | 2019-11-21 03:45 | PC.NURSE ---
Pt slept most of this shift. Transferred from chair to bed with only standby assist. Denies shortness of air/pain. Myesha remains patent with adequate UOP.
[2019-11-21 04:00] VITALS: BP 144/66; PULSE 68; RESP 16; TEMP 36.9; O2SAT 87
[2019-11-21 05:00] VITALS: BMI 16.6
[2019-11-21 08:00] VITALS: BP 136/55; PULSE 75; RESP 16; TEMP 36.8; O2SAT 97
[2019-11-21 08:12] LABS: Basophils % 0.2 % (0.1-2.0); Eosinophils # 0.2 K/mm3 (0.0-0.4); Eosinophils % 1.2 % (0.1-12.0); Hematocrit 34.5 % (42.0-52.0); Hemoglobin 11.5 g/dL (14.1-18.0); Lymphocytes # 0.9 K/mm3 (0.7-4.5); Lymphocytes % 4.7 % (10-50); Mean Corpuscular HGB Conc 33.4 g/dL (31.8-35.4); Mean Corpuscular Hemoglobin 32.2 pg (27.0-31.2); Mean Corpuscular Volume 96.6 fl (80-94); Mean Platelet Volume 9.4 fl (7.4-10.4); Monocytes # 0.8 K/mm3 (0.1-1.0); Monocytes % 4.5 % (1.7-9.3); Neutrophils # 16.6 K/mm3 (1.8-7.8); Neutrophils % 89.5 % (37.0-80.0); Platelet Count 74 K/mm3 (142-424); Red Blood Count 3.57 M/mm3 (4.60-6.20); Red Cell Distribution Width 14.6 % (11.5-17.5); White Blood Count 18.6 K/mm3 (4.8-10.8)
[2019-11-21 08:19] LABS: MANUAL DIFFERENTIAL MANUAL DIFFERENTIAL (MANUAL DIFF)
[2019-11-21 08:30] VITALS: O2SAT 97
[2019-11-21 09:27] LABS: Lymphocytes % 5 % (10-50); Monocytes % 2 % (2-9); Neutrophils % 93 % (42-76); Platelet Estimate Normal; RBC Morphology Normal; Total Cells Counted 100
[2019-11-21 09:33] LABS: Chloride 108 mmol/L (98-107); Potassium 3.1 mmoL/L (3.5-5.1); Sodium 140 mmol/L (136-145)
[2019-11-21 09:36] LABS: Anion Gap 12.1 mEq/L (5-15); Blood Urea Nitrogen 30 mg/dl (9-20); Calcium 7.8 mg/dl (8.4-10.2); Carbon Dioxide 23 mmol/L (22.0-30.0); Creatinine Clearance Estimated 51 mL/min (50-200); Estimated Glomerular Filt Rate 74 ml/min (>60); GFR (African American) 90 ML/MIN (>60); Glucose 111 mg/dl (74-100)
--- NOTE | 2019-11-21 10:01 | HMH.ACPN ---
Internal Medicine - PN: Subj *Date: 11/21/19 *Time: 10:01 Exam Vital signs and Labs for Last 24 Hours: Temp Pulse Resp BP Pulse Ox 98.2 F 75 16 136/55 L 97 11/21/19 08:00 11/21/19 08:00 11/21/19 08:00 11/21/19 08:00 11/21/19 08:00 Laboratory Results - last 24 hr 11/21/19 07:56: WBC 18.6 H, RBC 3.57 L, Hgb 11.5 L, Hct 34.5 L, MCV 96.6 H, MCH 32.2 H, MCHC 33.4, RDW 14.6, Plt Count 74 L D, MPV 9.4, Neut % (Auto) 89.5 H, Lymph % (Auto) 4.7 L, [place] % (Auto) 4.5, Eos % (Auto) 1.2, Baso % (Auto) 0.2, Neut # (Auto) 16.6 H, Lymph # (Auto) 0.9, [place] # (Auto) 0.8, Eos # (Auto) 0.2, Baso # (Auto) 0.0, Total Counted 100, Neutrophils % (Manual) 93 H, Lymphocytes % (Manual) 5 L, Monocytes % (Manual) 2, Platelet Estimate Normal, RBC Morphology Normal 11/21/19 07:56: Sodium 140, Potassium 3.1 L, Chloride 108 H, Carbon Dioxide 23, Anion Gap 12.1, BUN 30 H, Creatinine 1.00 D, Estimated Creat Clear 51, Estimated GFR 74, Est GFR ( Amer) 90 D, Glucose 111 H, Calcium 7.8 L I & O for Last 24 hours: Intake & Output 11/18/19 11/19/19 11/20/19 11/21/19 23:59 23:59 23:59 23:59 Intake Total 3914 / 3914 3774 / 3774 2138 / 2138 1449 / 1449 Output Total 1850 / 2450 3300 / 3300 3250 / 3750 1725 / 1725 Balance 2064 / 1464 474 / 474 -1112 / -1612 -276 / -276 Weight 50 kg 51.511 kg 51.513 kg 50.944 kg Microbiology Reports for the Last 24 Hours: Microbiology 11/17/19 20:08 Blood Blood Culture - Preliminary Escherichia coli 11/17/19 20:08 Blood Blood Culture - Preliminary Escherichia coli Assessment and Plan (1) E. coli septicemia Current visit: Yes Status: Acute Category: Medical Code(s): A41.51 - Sepsis due to Escherichia coli [E. coli] (2) Obstructive nephropathy due to benign prostatic hyperplasia Current visit: Yes Status: Acute Category: Medical Code(s): N40.1 - Benign prostatic hyperplasia with lower urinary tract symptoms; N13.8 - Other obstructive and reflux uropathy (3) Leukocytosis Current visit: Yes Status: Acute Category: Medical Code(s): D72.829 - Elevated white blood cell count, unspecified (4) Acute renal failure Current visit: Yes Status: Acute Category: Medical Code(s): N17.9 - Acute kidney failure, unspecified (5) Gram-negative bacteremia Current visit: Yes Status: Acute Category: Medical Code(s): R78.81 - Bacteremia (6) Urinary tract infection Current visit: Yes Status: Acute Qualifiers: Urinary tract infection type: acute cystitis Hematuria presence: with hematuria Qualified Code(s): N30.01 - Acute cystitis with hematuria Category: Medical Code(s): N39.0 - Urinary tract infection, site not specified (7) Chronic schizophrenia Current visit: No Status: Acute Category: Medical Code(s): F20.9 - Schizophrenia, unspecified (8) Protein calorie malnutrition Current visit: Yes Status: Acute Category: Medical Code(s): E46 - Unspecified protein-calorie malnutrition (9) Protein-calorie malnutrition, severe Current visit: Yes Status: Acute Category: Medical Code(s): E43 - Unspecified severe protein-calorie malnutrition (10) Cholelithiasis Current visit: Yes Status: Acute Qualifiers: Cholelithiasis location: gallbladder Cholecystitis acuity: unspecified acuity Category: Medical Code(s): K80.20 - Calculus of gallbladder without cholecystitis without obstruction (11) Hydronephrosis Current visit: Yes Status: Acute Qualifiers: Hydronephrosis type: unspecified Qualified Code(s): N13.30 - Unspecified hydronephrosis Category: Medical Code(s): N13.30 - Unspecified hydronephrosis (12) Hypokalemia Current visit: Yes Status: Acute Category: Medical Code(s): E87.6 - Hypokalemia (13) Thrombocytopenia Current visit: Yes Status: Acute Category: Medical Code(s): D69.6 - Thrombocytopenia, unspecified (14) E. coli
--- NOTE | 2019-11-21 13:35 | HMH.ACPN2 ---
Internal Medicine - PN: Subj *Date: 11/21/19 *Time: 13:36 Interval history: clinically improving creat=1.0 alert/lucid/clear Exam Vital signs and Labs for Last 24 Hours: Temp Pulse Resp BP Pulse Ox 98.2 F 75 16 136/55 L 97 11/21/19 08:00 11/21/19 08:00 11/21/19 08:00 11/21/19 08:00 11/21/19 08:30 Laboratory Results - last 24 hr 11/21/19 07:56: WBC 18.6 H, RBC 3.57 L, Hgb 11.5 L, Hct 34.5 L, MCV 96.6 H, MCH 32.2 H, MCHC 33.4, RDW 14.6, Plt Count 74 L D, MPV 9.4, Neut % (Auto) 89.5 H, Lymph % (Auto) 4.7 L, [place] % (Auto) 4.5, Eos % (Auto) 1.2, Baso % (Auto) 0.2, Neut # (Auto) 16.6 H, Lymph # (Auto) 0.9, [place] # (Auto) 0.8, Eos # (Auto) 0.2, Baso # (Auto) 0.0, Total Counted 100, Neutrophils % (Manual) 93 H, Lymphocytes % (Manual) 5 L, Monocytes % (Manual) 2, Platelet Estimate Normal, RBC Morphology Normal 11/21/19 07:56: Sodium 140, Potassium 3.1 L, Chloride 108 H, Carbon Dioxide 23, Anion Gap 12.1, BUN 30 H, Creatinine 1.00 D, Estimated Creat Clear 51, Estimated GFR 74, Est GFR ( Amer) 90 D, Glucose 111 H, Calcium 7.8 L I & O for Last 24 hours: Intake & Output 11/18/19 11/19/19 11/20/19 11/21/19 23:59 23:59 23:59 23:59 Intake Total 3914 / 3914 3774 / 3774 2138 / 2138 1449 / 1449 Output Total 1850 / 2450 3300 / 3300 3250 / 3750 1725 / 1725 Balance 2064 / 1464 474 / 474 -1112 / -1612 -276 / -276 Weight 110 lb 3.698 oz 113 lb 9 oz 113 lb 9.068 oz 112 lb 5 oz - Constitutional no acute distress - *Routine HEENT Exam Head: Present: normocephalic Eye: Present: EOMI, PERRL ENT: Present: mucous membranes moist - *Routine Neck Exam Present: supple. Absent: lymphadenopathy - *Routine Respiratory Exam Present: CTA bilaterally - *Routine Cardiovascular Exam Present: RRR - *Routine Abdominal Exam Present: soft, normoactive bowel sounds. Absent: tenderness - *Routine Extremities Exam Absent: cyanosis, clubbing, edema - *Routine Skin Exam Present: warm. Absent: rash - *Routine Neurological Exam Present: alert, oriented X3 Assessment and Plan (1) E. coli septicemia Current visit: Yes Status: Acute Category: Medical Code(s): A41.51 - Sepsis due to Escherichia coli [E. coli] (2) Obstructive nephropathy due to benign prostatic hyperplasia Current visit: Yes Status: Acute Category: Medical Code(s): N40.1 - Benign prostatic hyperplasia with lower urinary tract symptoms; N13.8 - Other obstructive and reflux uropathy (3) Leukocytosis Current visit: Yes Status: Acute Category: Medical Code(s): D72.829 - Elevated white blood cell count, unspecified (4) Acute renal failure Current visit: Yes Status: Acute Category: Medical Code(s): N17.9 - Acute kidney failure, unspecified (5) Gram-negative bacteremia Current visit: Yes Status: Acute Category: Medical Code(s): R78.81 - Bacteremia (6) Urinary tract infection Current visit: Yes Status: Acute Qualifiers: Urinary tract infection type: acute cystitis Hematuria presence: with hematuria Qualified Code(s): N30.01 - Acute cystitis with hematuria Category: Medical Code(s): N39.0 - Urinary tract infection, site not specified (7) Chronic schizophrenia Current visit: No Status: Acute Category: Medical Code(s): F20.9 - Schizophrenia, unspecified (8) Protein calorie malnutrition Current visit: Yes Status: Acute Category: Medical Code(s): E46 - Unspecified protein-calorie malnutrition (9) Protein-calorie malnutrition, severe Current visit: Yes Status: Acute Category: Medical Code(s): E43 - Unspecified severe protein-calorie malnutrition (10) Cholelithiasis Current visit: Yes Status: Acute Qualifiers: Cholelithiasis location: gallbladder Cholecystitis acuity: unspecified acuity Category: Medical Code(s): K80.20 - Calculus of gallbladder without cholecystitis without obstruction (11) Hydronephrosis Current visit: Yes Status: Acute Qualifie
--- NOTE | 2019-11-21 14:52 | DIET.NUTRFU ---
Pt receiving protein supplements qid with good acceptance/tolerance. Intakes have been low, he was able to eat 50% of breakfast. Weight is stable.
--- NOTE | 2019-11-21 15:35 | PC.NURSE ---
A&O TO NAME AND BIRTHDAY ONLY. PT HAS TOLERATED ROOM AIR WELL THROUGHOUT SHIFT. RESPIRATIONS REGULAR AND UNLABORED. LUNG SOUNDS DIMINISHED THROUGHOUT. +2 PULSES NOTED THROUGHOUT. NO EDEMA NOTED. HAND PRIVATE BRANCH EXCHANGE SERVICE ADVISOR EQUAL. ACTIVE BOWEL SOUNDS HEARD IN ALL 4 QUADRANTS. SOFT AND NONTENDER. PT HAD 2 BM THUS FAR. ONE WAS FORMED AND ONE WAS DIARRHEA. PT WALKS TO BATHROOM W 1 PERSON ASSIST. PT TOLERATES WELL. SELBY CATH IN PLACE W CLEAR YELLOW URINE FLOWING FREELY INTO CATHETER BAG. NO KINKS NOTED. STAGE 2 PRESSURE ULCER NOTED TO COCCYX. POLYNEM IN PLACE. PT HAS BEEN ENCOURAGED TO REPOSITION IN THE BED EVERY 2 HOURS. NO REPORT OF PAIN OR SOB THROUGHOUT SHIFT. NS INFUSING AT 100ML/HR. PT IS CURRENTLY LYING IN BED. CALL LIGHT WITHIN REACH. BED IN LOWEST POSITION. VSS. WILL CONTINUE TO MONITOR.
[2019-11-21 16:00] VITALS: BP 120/42; PULSE 62; RESP 19; TEMP 37; O2SAT 97
--- NOTE | 2019-11-21 19:09 | PC.NURSE ---
report given to angelique
[2019-11-21 20:00] VITALS: BP 146/73; PULSE 66; RESP 18; TEMP 36.8; O2SAT 94
[2019-11-22 03:56] VITALS: BP 160/80; PULSE 74; RESP 16; TEMP 37.2; O2SAT 96
--- NOTE | 2019-11-22 04:11 | PC.NURSE ---
Pt alert to self and time. lungs diminished throughout. Pt denies any pain or SOA. F/C patent draining clear yellow urine. Dressing in place on stage 2 on coccyx c/d/i. pt encourage to repositioned throughout shift. pt has slept quietly this shift.
[2019-11-22 05:00] VITALS: BMI 17.2
[2019-11-22 06:40] LABS: Eosinophils % 1.2 % (0.1-12.0)
[2019-11-22 06:51] LABS: Basophils % 0.1 % (0.1-2.0); Eosinophils # 0.2 K/mm3 (0.0-0.4); Hematocrit 28.9 % (42.0-52.0); Lymphocytes # 1.1 K/mm3 (0.7-4.5); Lymphocytes % 5.4 % (10-50); Mean Corpuscular Hemoglobin 31.2 pg (27.0-31.2); Mean Corpuscular Volume 94.6 fl (80-94); Mean Platelet Volume 8.4 fl (7.4-10.4); Monocytes # 0.7 K/mm3 (0.1-1.0); Monocytes % 3.8 % (1.7-9.3); Neutrophils # 17.5 K/mm3 (1.8-7.8); Neutrophils % 89.6 % (37.0-80.0); Platelet Count 123 K/mm3 (142-424); Red Blood Count 3.05 M/mm3 (4.60-6.20); Red Cell Distribution Width 14.7 % (11.5-17.5); White Blood Count 19.6 K/mm3 (4.8-10.8)
[2019-11-22 06:58] LABS: Chloride 110 mmol/L (98-107); Sodium 142 mmol/L (136-145)
[2019-11-22 06:59] LABS: Hemoglobin 9.5 g/dL (14.1-18.0)
[2019-11-22 07:00] LABS: MANUAL DIFFERENTIAL MANUAL DIFFERENTIAL (MANUAL DIFF)
[2019-11-22 07:01] LABS: Blood Urea Nitrogen 24 mg/dl (9-20); Creatinine Clearance Estimated 53 mL/min (50-200); Estimated Glomerular Filt Rate 74 ml/min (>60); GFR (African American) 90 ML/MIN (>60)
[2019-11-22 07:02] LABS: Anion Gap 4.9 mEq/L (5-15); Calcium 7.5 mg/dl (8.4-10.2); Carbon Dioxide 30 mmol/L (22.0-30.0); Glucose 105 mg/dl (74-100)
[2019-11-22 07:33] LABS: Potassium 2.9 mmoL/L (3.5-5.1)
--- NOTE | 2019-11-22 07:33 | PC.NURSE ---
received call from lab ([facility]) with critical potassium level of 2.9. Dr. Peng burns.
[2019-11-22 07:46] LABS: Eosinophils % 2 % (0-3); Lymphocytes % 5 % (10-50); Monocytes % 3 % (2-9); Neutrophils % 90 % (42-76); Platelet Estimate Slight Decrease; Total Cells Counted 100
[2019-11-22 07:47] LABS: RBC Morphology Normal
[2019-11-22 08:00] VITALS: BP 106/66; PULSE 78; RESP 16; TEMP 36.5; O2SAT 95
--- NOTE | 2019-11-22 09:38 | HMH.ACPN2 ---
Internal Medicine - PN: Subj *Date: 11/22/19 *Time: 17:22 Interval history: 69-year-old male patient sitting up in bed respirations easy even, he reports he did have a good night. Potassium today 2.9 he is receiving 20 mEq of potassium p.o. twice daily, additionally ordered 20 low mEq IV x2. Explained to patient we look towards discharge tomorrow as long as we can keep his electrolyte status normal. Blood cultures x2 and urine culture all grew E. coli he is receiving ceftriaxone per IV. Exam Vital signs and Labs for Last 24 Hours: Temp Pulse Resp BP Pulse Ox 97.7 F 78 16 106/66 L 95 11/22/19 08:00 11/22/19 08:00 11/22/19 08:00 11/22/19 08:00 11/22/19 08:00 Laboratory Results - last 24 hr 11/21/19 07:56: Carbon Dioxide 23, Anion Gap 12.1, BUN 30 H, Creatinine 1.00 D, Estimated Creat Clear 51, Estimated GFR 74, Est GFR ( Amer) 90 D, Glucose 111 H, Calcium 7.8 L 11/22/19 05:55: WBC 19.6 H, RBC 3.05 L, Hgb 9.5 L D, Hct 28.9 L, MCV 94.6 H, MCH 31.2, MCHC 33.0, RDW 14.7, Plt Count 123 L D, MPV 8.4, Neut % (Auto) 89.6 H, Lymph % (Auto) 5.4 L, [place] % (Auto) 3.8, Eos % (Auto) 1.2, Baso % (Auto) 0.1, Neut # (Auto) 17.5 H, Lymph # (Auto) 1.1, [place] # (Auto) 0.7, Eos # (Auto) 0.2, Baso # (Auto) 0.0, Total Counted 100, Neutrophils % (Manual) 90 H, Lymphocytes % (Manual) 5 L, Monocytes % (Manual) 3, Eosinophils % (Manual) 2, Platelet Estimate Slight decrease, RBC Morphology Normal 11/22/19 05:55: Sodium 142, Potassium 2.9 L*, Chloride 110 H, Carbon Dioxide 30 D, Anion Gap 4.9 L, BUN 24 H, Creatinine 1.00, Estimated Creat Clear 53, Estimated GFR 74, Est GFR ( Amer) 90, Glucose 105 H, Calcium 7.5 L I & O for Last 24 hours: Intake & Output 11/19/19 11/20/19 11/21/19 11/22/19 23:59 23:59 23:59 23:59 Intake Total 3774 / 3774 2138 / 2138 4056 / 4056 1404 / 1404 Output Total 3300 / 3300 3250 / 3750 1725 / 1725 1700 / 1700 Balance 474 / 474 -1112 / -1612 2331 / 2331 -296 / -296 Weight 113 lb 9 oz 113 lb 9.068 oz 112 lb 5 oz 116 lb - Constitutional no acute distress - *Routine HEENT Exam Head: Present: normocephalic. Absent: scalp tenderness ENT: Present: mucous membranes moist. Absent: sinus tenderness - *Routine Neck Exam Present: full ROM, trachea midline. Absent: JVD, tracheal deviation - *Routine Respiratory Exam Present: CTA bilaterally. Absent: accessory muscle use - *Routine Cardiovascular Exam Present: RRR - *Routine Abdominal Exam Present: soft, normoactive bowel sounds. Absent: tenderness, mass - *Routine Extremities Exam Present: pulses intact. Absent: clubbing, calf tenderness, tenderness - *Routine Skin Exam Present: intact, dry, warm. Absent: cyanosis, wounds - *Routine Neurological Exam Present: alert, oriented X3. Absent: altered mental status - Routine Psychiatric Exam Present: normal affect, normal thought process. Absent: suicidal ideation Assessment and Plan (1) E. coli septicemia Current visit: Yes Status: Acute Category: Medical Code(s): A41.51 - Sepsis due to Escherichia coli [E. coli] (2) Obstructive nephropathy due to benign prostatic hyperplasia Current visit: Yes Status: Acute Category: Medical Code(s): N40.1 - Benign prostatic hyperplasia with lower urinary tract symptoms; N13.8 - Other obstructive and reflux uropathy (3) Leukocytosis Current visit: Yes Status: Acute Category: Medical Code(s): D72.829 - Elevated white blood cell count, unspecified (4) Acute renal failure Current visit: Yes Status: Acute Category: Medical Code(s): N17.9 - Acute kidney failure, unspecified (5) Gram-negative bacteremia Current visit: Yes Status: Acute Category: Medical Code(s): R78.81 - Bacteremia (6) Urinary tract infection Current visit: Yes Status: Acute Qualifiers: Urinary tract infection type: acute cystitis Hematuria presence: with hematuria Qualified Code(s): N30.01 - Acute cystitis with hematuria Categ
--- NOTE | 2019-11-22 09:53 | SW/DCPLANNER ---
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 SHE SUGGESTED TO CALL [facility] FOR TRANSPORT AND STATED THEY GET THEIR MEDICATIONS THROUGH [facility] IN [place].. SHE STATED THEY CAN ACCOMMODATE A CATHETER...HOME HEALTH WILL NEED TO BE SET UP... Addendum entered by Aida Arevalo 11/23/19 10:58: ATTEMPTED TO CALL [facility] THIS MORNING TO DISCUSS PATIENTS DISCHARGE PLAN AND IF HE CAN RETURN BACK AND TO DISCUSS THE NEED FOR HIS MEDICATIONS...NO ONE ANSWERED THE PHONE..I HAVE LEFT A COUPLE OF LENGTHY MESSAGES BUT HAVE NOT HEARD BACK AT THIS POINT... WILL CONTINUE TO CALL.. Addendum entered by Meg Rosales 11/22/19 15:31: Third voice message has been left for Hue at [facility] to return my phone call. Addendum entered by Meg Rosales 11/22/19 14:12: Several attempts have been made to contact Hue at [facility]. No answer voicemails left for return phone call. Original Note: This patient currently resides at [facility]. I currently have a voicemail left with [facility] regarding discharge plans for this patient. Patient could potentially need a catheter and IV antibiotics at discharge. I will speak with [facility] once ready for discharge.
[2019-11-22 16:00] VITALS: BP 115/67; PULSE 71; RESP 16; TEMP 37; O2SAT 94
--- NOTE | 2019-11-22 17:36 | PC.NURSE ---
pt has done well this shift. No issues noted. Received (2) runs of IV Potassium 20mEq for a level of 2.9. Tolerates a reg diet, asking for Ensure regularly. Is A&Ox4 today, this has improved from yesterday. Myesha newton noted. He did not wish to get OOB today when encouraged to do so.
[2019-11-22 20:00] VITALS: BP 132/63; PULSE 76; RESP 16; TEMP 37.4; O2SAT 98
--- NOTE | 2019-11-23 03:02 | PC.NURSE ---
A&OX3 THIS SHIFT. INJECTION MOLDING MACHINE SETTER EQUAL BILAT. LUNGS NOTED CLEAR T/O AUSCULTATION. TOLERATED RA WELL. PULSES +2. CAP REFILL <3 SEC. ABDOMEN NOTED NONDISTENDED, ACTIVE BOWEL SOUNDS, SOFT AND NONTENDER PER PALPATION. SELBY CATHETER IN PLACE PATENT AND DRAINING CLEAR, YELLOW URINE. NO S/S OF INFECTION AT BITA SITE, BITA AREA CDI. PT REPORTED FEELING ANXIOUS AT BEGINNING OF SHIFT, REQUESTED PRN CLONAZEPAM, ADMINISTERED PER MAY, ON REASSESSMENT PT NOTED RESTING IN BED WITH EYES CLOSED. OFFERED TO REPOSITION/TURN PT IN BED, PT REFUSED. VSS. WILL CONTINUE TO MONITOR.
[2019-11-23 04:00] VITALS: BP 156/72; PULSE 75; RESP 17; TEMP 37.5; O2SAT 98
[2019-11-23 04:58] VITALS: BMI 17.5
[2019-11-23 06:42] LABS: Chloride 109 mmol/L (98-107); Potassium 3.9 mmoL/L (3.5-5.1); Sodium 142 mmol/L (136-145)
[2019-11-23 06:45] LABS: Anion Gap 7.9 mEq/L (5-15); Blood Urea Nitrogen 24 mg/dl (9-20); Carbon Dioxide 29 mmol/L (22.0-30.0); Creatinine Clearance Estimated 54 mL/min (50-200); Estimated Glomerular Filt Rate 74 ml/min (>60); GFR (African American) 90 ML/MIN (>60)
[2019-11-23 06:46] LABS: Basophils # 0.1 K/mm3 (0-0.2); Basophils % 0.3 % (0.1-2.0); Calcium 7.5 mg/dl (8.4-10.2); Eosinophils # 0.2 K/mm3 (0.0-0.4); Eosinophils % 1.2 % (0.1-12.0); Glucose 107 mg/dl (74-100); Hematocrit 28.2 % (42.0-52.0); Hemoglobin 9.1 g/dL (14.1-18.0); Lymphocytes # 1.1 K/mm3 (0.7-4.5); Mean Corpuscular HGB Conc 32.4 g/dL (31.8-35.4); Mean Corpuscular Hemoglobin 31.5 pg (27.0-31.2); Mean Corpuscular Volume 97.2 fl (80-94); Mean Platelet Volume 8.2 fl (7.4-10.4); Monocytes # 0.9 K/mm3 (0.1-1.0); Monocytes % 4.5 % (1.7-9.3); Neutrophils # 18.6 K/mm3 (1.8-7.8); Platelet Count 193 K/mm3 (142-424); Red Cell Distribution Width 14.8 % (11.5-17.5); White Blood Count 20.8 K/mm3 (4.8-10.8)
[2019-11-23 06:49] LABS: MANUAL DIFFERENTIAL MANUAL DIFFERENTIAL (MANUAL DIFF)
[2019-11-23 07:10] VITALS: BP 155/63; PULSE 92; RESP 18; TEMP 36.9; O2SAT 98
[2019-11-23 08:32] LABS: Anisocytosis 1+; Hypochromasia 1+; Lymphocytes % 7 % (10-50); Monocytes % 4 % (2-9); Neutrophils % 88 % (42-76); Total Cells Counted 100
[2019-11-23 08:33] LABS: Platelet Estimate Normal
--- NOTE | 2019-11-23 08:59 | HMH.ACPN2 ---
Internal Medicine - PN: Subj *Date: 11/23/19 *Time: 11:59 Interval history: 69-year-old male patient sitting up in bed tolerated breakfast without any difficulties. He reports he is feeling better, was informed he is going to stay at least 1 more day, he was agreeable to this. White blood cell count elevated to 20.8, sodium 142, and potassium 3.9 Exam Vital signs and Labs for Last 24 Hours: Temp Pulse Resp BP Pulse Ox 98.5 F 92 H 18 155/63 H 98 11/23/19 07:10 11/23/19 07:10 11/23/19 07:10 11/23/19 07:10 11/23/19 07:10 Laboratory Results - last 24 hr 11/23/19 06:01: WBC 20.8 H*, RBC 2.90 L, Hgb 9.1 L, Hct 28.2 L, MCV 97.2 H, MCH 31.5 H, MCHC 32.4, RDW 14.8, Plt Count 193 D, MPV 8.2, Neut % (Auto) 89.0 H, Lymph % (Auto) 5.0 L, [place] % (Auto) 4.5, Eos % (Auto) 1.2, Baso % (Auto) 0.3, Neut # (Auto) 18.6 H, Lymph # (Auto) 1.1, [place] # (Auto) 0.9, Eos # (Auto) 0.2, Baso # (Auto) 0.1, Total Counted 100, Neutrophils % (Manual) 88 H, Band Neutrophils % 1.0, Lymphocytes % (Manual) 7 L, Monocytes % (Manual) 4, Platelet Estimate Normal, Hypochromasia 1+, Anisocytosis 1+ 11/23/19 06:01: Sodium 142, Potassium 3.9 D, Chloride 109 H, Carbon Dioxide 29, Anion Gap 7.9, BUN 24 H, Creatinine 1.00, Estimated Creat Clear 54, Estimated GFR 74, Est GFR ( Amer) 90, Glucose 107 H, Calcium 7.5 L I & O for Last 24 hours: Intake & Output 11/20/19 11/21/19 11/22/19 11/23/19 23:59 23:59 23:59 23:59 Intake Total 2138 / 2138 4056 / 4056 4065 / 4065 1838 / 1838 Output Total 3250 / 3750 1725 / 1725 1700 / 2320 1420 / 1420 Balance -1112 / -1612 2331 / 2331 2365 / 1745 418 / 418 Weight 113 lb 9.068 oz 112 lb 5 oz 116 lb 118 lb 9 oz - Constitutional no acute distress - *Routine HEENT Exam Head: Present: normocephalic ENT: Present: mucous membranes moist - *Routine Neck Exam Present: full ROM, trachea midline. Absent: JVD - *Routine Respiratory Exam Present: CTA bilaterally. Absent: accessory muscle use - *Routine Cardiovascular Exam Present: RRR - *Routine Abdominal Exam Present: soft, normoactive bowel sounds. Absent: tenderness, rigid - *Routine Extremities Exam Present: pulses intact. Absent: calf tenderness - *Routine Skin Exam Present: intact, warm. Absent: jaundice - *Routine Neurological Exam Present: alert, normal reflexes - Routine Psychiatric Exam Present: normal affect Assessment and Plan (1) E. coli septicemia Current visit: Yes Status: Acute Category: Medical Code(s): A41.51 - Sepsis due to Escherichia coli [E. coli] (2) Obstructive nephropathy due to benign prostatic hyperplasia Current visit: Yes Status: Acute Category: Medical Code(s): N40.1 - Benign prostatic hyperplasia with lower urinary tract symptoms; N13.8 - Other obstructive and reflux uropathy (3) Leukocytosis Current visit: Yes Status: Acute Category: Medical Code(s): D72.829 - Elevated white blood cell count, unspecified (4) Acute renal failure Current visit: Yes Status: Acute Category: Medical Code(s): N17.9 - Acute kidney failure, unspecified (5) Gram-negative bacteremia Current visit: Yes Status: Acute Category: Medical Code(s): R78.81 - Bacteremia (6) Urinary tract infection Current visit: Yes Status: Acute Qualifiers: Urinary tract infection type: acute cystitis Hematuria presence: with hematuria Qualified Code(s): N30.01 - Acute cystitis with hematuria Category: Medical Code(s): N39.0 - Urinary tract infection, site not specified (7) Chronic schizophrenia Current visit: No Status: Acute Category: Medical Code(s): F20.9 - Schizophrenia, unspecified (8) Protein calorie malnutrition Current visit: Yes Status: Acute Category: Medical Code(s): E46 - Unspecified protein-calorie malnutrition (9) Protein-calorie malnutrition, severe Current visit: Yes Status: Acute Category: Medical Code(s): E43 - Unspecified severe protein-calorie mal
--- NOTE | 2019-11-23 09:25 | DIET.NUTRFU ---
Pt eating better- 50% and with protein supplements qid. Weight is up 2kg t/o stay- 6 days.
[2019-11-23 10:59] LABS: Osmolality, Urine 299 mOsmol/kg (.)
--- NOTE | 2019-11-23 14:50 | PC.NURSE ---
Pt has been alert and oriented this shift x 4. This am did give prn clozapam per may. Pt has been calm this shift with no c/o. Brunner in place and draining good light yellow urine output. Did offer teds and pt refused and did also encourage turning and pt will not stay off coccyx well, he says he has heartburn and has to sit up. Did also speak with Hue Cosme at [facility] and update her on pt's status. She is aware of appt for 11/25/[address] Benavides outpatient, pending d/c. Have also referred Hue to Aida Arevalo, in care management as well and provided her with number as well. Bath given this shift. Dsg changed to open area on coccyx after cleaning. Lungs cta. No edema noted.
[2019-11-23 15:13] VITALS: BP 125/72; PULSE 74; RESP 20; TEMP 36.9; O2SAT 99
--- NOTE | 2019-11-23 19:03 | PC.NURSE ---
report given to angelique
[2019-11-23 20:00] VITALS: BP 130/52; PULSE 83; RESP 20; TEMP 37.3; O2SAT 94
[2019-11-24 04:00] VITALS: BP 140/67; PULSE 75; RESP 20; TEMP 38.1; O2SAT 96
--- NOTE | 2019-11-24 04:24 | PC.NURSE ---
Pt has slept well this shift. At the beginning of shift pt had requested to take PRN clonazepam, this nurse administered pt's PRN meds per MAY. Lung sounds are clear throughout per auscultation. Brunner is draining clear yellow urine per gravity. No other changes at this time. Will continue to monitor.
[2019-11-24 05:00] VITALS: BMI 17.6
[2019-11-24 06:17] LABS: Basophils # 0.1 K/mm3 (0-0.2); Basophils % 0.4 % (0.1-2.0); Chloride 106 mmol/L (98-107); Eosinophils # 0.2 K/mm3 (0.0-0.4); Hematocrit 25.3 % (42.0-52.0); Hemoglobin 8.4 g/dL (14.1-18.0); Lymphocytes # 1.1 K/mm3 (0.7-4.5); Lymphocytes % 4.9 % (10-50); Mean Corpuscular HGB Conc 33.2 g/dL (31.8-35.4); Mean Corpuscular Hemoglobin 31.4 pg (27.0-31.2); Mean Corpuscular Volume 94.7 fl (80-94); Monocytes # 0.7 K/mm3 (0.1-1.0); Neutrophils % 90.6 % (37.0-80.0); Platelet Count 273 K/mm3 (142-424); Potassium 4.4 mmoL/L (3.5-5.1); Red Blood Count 2.67 M/mm3 (4.60-6.20); Red Cell Distribution Width 14.9 % (11.5-17.5); Sodium 139 mmol/L (136-145); White Blood Count 22.1 K/mm3 (4.8-10.8)
[2019-11-24 06:20] LABS: Anion Gap 6.4 mEq/L (5-15); Blood Urea Nitrogen 24 mg/dl (9-20); Carbon Dioxide 31 mmol/L (22.0-30.0); Creatinine Clearance Estimated 54 mL/min (50-200); Estimated Glomerular Filt Rate 74 ml/min (>60); GFR (African American) 90 ML/MIN (>60)
[2019-11-24 06:21] LABS: Calcium 7.6 mg/dl (8.4-10.2); Glucose 100 mg/dl (74-100)
[2019-11-24 06:31] LABS: MANUAL DIFFERENTIAL MANUAL DIFFERENTIAL (MANUAL DIFF)
[2019-11-24 07:17] LABS: Eosinophils % 2 % (0-3); Lymphocytes % 5 % (10-50); Monocytes % 5 % (2-9); Neutrophils % 88 % (42-76); Total Cells Counted 100
[2019-11-24 07:18] LABS: Platelet Estimate Normal; RBC Morphology Normal
[2019-11-24 08:00] VITALS: BP 152/78; PULSE 65; RESP 16; TEMP 36.9; O2SAT 98
--- NOTE | 2019-11-24 08:55 | XR_ITS ---
PROCEDURE: XR CHEST 2V CLINICAL HISTORY: increasing WBC and fever COMPARISON: CR XR CHEST 2V from 11/17/2019 FINDINGS: The cardiomediastinal silhouette and pulmonary vascularity are within normal limits. COPD with hyperinflation Small bilateral pleural effusions. Patchy density is present in the right lung base may be due to an area of atelectasis or infiltrate. There is also increased density in the retrocardiac region on the left medially suggesting an area of volume loss or consolidation. IMPRESSION: COPD with bilateral effusions with bilateral lower lobe atelectasis or infiltrate. These findings have developed since 11/17/2019 Dictated by: Marlon Alfaro MD 11/24/2019 11:16 aMrlon Alfaro MD in OV 11/24/2019 11:16
--- NOTE | 2019-11-24 09:06 | HMH.ACPN2 ---
Internal Medicine - PN: Subj *Date: 11/24/19 *Time: 08:10 Interval history: Patient states he is feeling well request to be discharged back to residential. White blood cell still elevated. Brunner draining at bedside. Patient states he ate breakfast and has no complaints at this time Exam Vital signs and Labs for Last 24 Hours: Temp Pulse Resp BP Pulse Ox 98.5 F 65 16 152/78 H 98 11/24/19 08:00 11/24/19 08:00 11/24/19 08:00 11/24/19 08:00 11/24/19 08:00 Laboratory Results - last 24 hr 11/17/19 21:32: Urine Osmolality 299 11/24/19 05:48: WBC 22.1 H*, RBC 2.67 L, Hgb 8.4 L, Hct 25.3 L, MCV 94.7 H, MCH 31.4 H, MCHC 33.2, RDW 14.9, Plt Count 273 D, MPV 8.0, Neut % (Auto) 90.6 H, Lymph % (Auto) 4.9 L, Sutter % (Auto) 3.0, Eos % (Auto) 1.0, Baso % (Auto) 0.4, Neut # (Auto) 20.0 H, Lymph # (Auto) 1.1, Sutter # (Auto) 0.7, Eos # (Auto) 0.2, Baso # (Auto) 0.1, Total Counted 100, Neutrophils % (Manual) 88 H, Lymphocytes % (Manual) 5 L, Monocytes % (Manual) 5, Eosinophils % (Manual) 2, Platelet Estimate Normal, RBC Morphology Normal 11/24/19 05:48: Sodium 139, Potassium 4.4, Chloride 106, Carbon Dioxide 31 H, Anion Gap 6.4, BUN 24 H, Creatinine 1.00, Estimated Creat Clear 54, Estimated GFR 74, Est GFR ( Amer) 90, Glucose 100, Calcium 7.6 L I & O for Last 24 hours: Intake & Output 11/21/19 11/22/19 11/23/19 11/24/19 11:59 11:59 11:59 11:59 Intake Total 2111 / 2111 4011 / 4011 4499 / 4499 3241 / 3241 Output Total 2625 / 2625 1700 / 1700 1420 / 1420 3950 / 3950 Balance -514 / -514 2311 / 2311 3079 / 3079 -709 / -709 Weight 112 lb 5 oz 116 lb 118 lb 9 oz 119 lb 6 oz - Constitutional no acute distress - *Routine HEENT Exam Head: Present: normocephalic Eye: Present: PERRL ENT: Present: mucous membranes moist - *Routine Neck Exam Present: supple. Absent: lymphadenopathy - *Routine Respiratory Exam Present: CTA bilaterally - *Routine Cardiovascular Exam Present: RRR - *Routine Abdominal Exam Present: soft, normoactive bowel sounds. Absent: tenderness - *Routine Extremities Exam Present: normal capillary refill. Absent: cyanosis, clubbing, edema - *Routine Skin Exam Present: warm, wounds. Absent: rash Comments: stage 2 on coccyx - *Routine Neurological Exam Present: alert, oriented X3 - Routine Psychiatric Exam Present: normal affect Assessment and Plan (1) E. coli septicemia Current visit: Yes Status: Acute Category: Medical Code(s): A41.51 - Sepsis due to Escherichia coli [E. coli] (2) Obstructive nephropathy due to benign prostatic hyperplasia Current visit: Yes Status: Acute Category: Medical Code(s): N40.1 - Benign prostatic hyperplasia with lower urinary tract symptoms; N13.8 - Other obstructive and reflux uropathy (3) Leukocytosis Current visit: Yes Status: Acute Category: Medical Code(s): D72.829 - Elevated white blood cell count, unspecified (4) Acute renal failure Current visit: Yes Status: Acute Category: Medical Code(s): N17.9 - Acute kidney failure, unspecified (5) Gram-negative bacteremia Current visit: Yes Status: Acute Category: Medical Code(s): R78.81 - Bacteremia (6) Urinary tract infection Current visit: Yes Status: Acute Qualifiers: Urinary tract infection type: acute cystitis Hematuria presence: with hematuria Qualified Code(s): N30.01 - Acute cystitis with hematuria Category: Medical Code(s): N39.0 - Urinary tract infection, site not specified (7) Chronic schizophrenia Current visit: No Status: Acute Category: Medical Code(s): F20.9 - Schizophrenia, unspecified (8) Protein calorie malnutrition Current visit: Yes Status: Acute Category: Medical Code(s): E46 - Unspecified protein-calorie malnutrition (9) Protein-calorie malnutrition, severe Current visit: Yes Status: Acute Category: Medical Code(s): E43 - Unspecified severe protein-calorie malnutrition (10) Cholelit
--- NOTE | 2019-11-24 11:41 | PC.NURSE ---
PT has been very hungry this morning, after refusing breakfast he has eaten dalton crackers and peanut butter, a snickers bar, drank a Pepsi and chocolate milk.
--- NOTE | 2019-11-24 12:36 | HMH.CONS ---
*Admission Date: 11/17/19 *History of present illness: chart reviewed. pt admitted on 11/17/2019 with weakness. he was noted to have elevated wbc with neutrophilia and thrombocytopenia. blood cx reveal e coli bacteremia and e coli from urine. covid IgG ab +. pt was initially treated with broad spectrum abx and is going to be transitioned to levaquin at discharge. his wbc is still elevated at 22K. plts have improved. he is anemic. his creatinine was also elevated on admission and ct revealed bilateral hydronephrosis. navarro has been placed and creatinine is improving. urology also following. [facility] History Medical History: Denies:: Cancer, Diabetes Mellitus Type 1, Diabetes Mellitus Type 2, MRSA *Have you ever received a pneumonia vaccine?: Yes *Have you received a flu vaccine this season?: Yes Other Medical History: Reports: Other (schizophrenia) Amputation: No Fractures: No - *Social History Alcohol Intake: never *Occupational Status:: disabled Housing: assisted living facility *Travel in the last 8 weeks: None Family Hx:: Unable to obtain Review of Systems - *Neurologic Reports abnormal walking, Reports behavioral changes, Reports unsteadiness, Reports dizziness, Reports weakness Meds Home Medications Medication Instructions Recorded Confirmed Type Benztropine Mesylate [Cogentin 1mg 1 mg PO BID 03/28/19 11/17/19 History tablet] Fluticasone Propionate [Flonase 1 spray NS DAILY 03/28/19 11/17/19 History Allergy Relief NS] Hydroxychloroquine Sulfate 200 mg PO DAILY 03/28/19 11/17/19 History [Plaquenil 200mg tablet] OXcarbazepine [Oxcarbazepine] 300 mg PO BID 03/28/19 11/17/19 History Oxybutynin Chloride 5 mg PO BID 03/28/19 11/17/19 History Tamsulosin HCl 0.4 mg PO HS 03/28/19 11/17/19 History clonazePAM [Klonopin 1mg tablet] 1 mg PO TIDP PRN 03/28/19 11/18/19 History Cholecalciferol (Vitamin D3) 1,000 unit PO DAILY 11/17/19 11/17/19 History [Vitamin D3 1,000 Unit Cap] Loratadine [Claritin] 10 mg PO DAILY 11/17/19 11/17/19 History hydrOXYzine pamoate [Vistaril 25mg 25 mg PO Q8HP PRN 11/17/19 11/18/19 History capsule] Aspirin [Aspirin 81mg EC Tab] 81 mg PO DAILY 11/18/19 11/18/19 History Famotidine 40 mg PO DAILY 11/18/19 11/18/19 History Mirtazapine [Remeron] 15 mg PO HS 11/18/19 11/18/19 History OLANZapine [Zyprexa] 10 mg PO HS 11/18/19 11/18/19 History Allergies Allergy/AdvReac Type Severity Reaction Status Date / Time No Known Allergies Allergy Verified 03/28/19 10:51 Exam Vital signs and Labs for Last 24 Hours: Temp Pulse Resp BP Pulse Ox 98.5 F 65 16 152/78 H 98 11/24/19 08:00 11/24/19 08:00 11/24/19 08:00 11/24/19 08:00 11/24/19 08:00 Laboratory Results - last 24 hr 11/24/19 05:48: WBC 22.1 H*, RBC 2.67 L, Hgb 8.4 L, Hct 25.3 L, MCV 94.7 H, MCH 31.4 H, MCHC 33.2, RDW 14.9, Plt Count 273 D, MPV 8.0, Neut % (Auto) 90.6 H, Lymph % (Auto) 4.9 L, Barron % (Auto) 3.0, Eos % (Auto) 1.0, Baso % (Auto) 0.4, Neut # (Auto) 20.0 H, Lymph # (Auto) 1.1, Barron # (Auto) 0.7, Eos # (Auto) 0.2, Baso # (Auto) 0.1, Total Counted 100, Neutrophils % (Manual) 88 H, Lymphocytes % (Manual) 5 L, Monocytes % (Manual) 5, Eosinophils % (Manual) 2, Platelet Estimate Normal, RBC Morphology Normal 11/24/19 05:48: Sodium 139, Potassium 4.4, Chloride 106, Carbon Dioxide 31 H, Anion Gap 6.4, BUN 24 H, Creatinine 1.00, Estimated Creat Clear 54, Estimated GFR 74, Est GFR ( Amer) 90, Glucose 100, Calcium 7.6 L I & O for Last 24 hours: Intake & Output 11/22/19 11/23/19 11/24/19 11/25/19 11:59 11:59 11:59 11:59 Intake Total 4011 / 4011 4499 / 4499 3241 / 3241 Output Total 1700 / 1700 1420 / 1420 4950 / 4950 Balance 2311 / 2311 3079 / 3079 -1709 / -1709 Weight 116 lb 118 lb 9 oz 119 lb 6 oz - Constitutional no acute distress - *Routine HEENT Exam Head: Present: normocephalic Eye: Present: EOMI, PERRL ENT: Present: mucous membranes moist - *Routine Neck Exam Present: jamison
[2019-11-24 16:00] VITALS: BP 145/76; PULSE 80; RESP 18; TEMP 36.4; O2SAT 100
--- NOTE | 2019-11-24 16:24 | PC.NURSE ---
Pt has been pleasant and cooperative this shift. A&O X4. No complaints of pain. Lungs CTA. No edema noted. Stage 2 pressure ulcer noted to coccyx and dressed with Aleviant dressing. F/C is patent and draining clear, yellow urine at bedside to gravity. Pt ambulates with stand-by assistance to/from the bathroom. Pt has had 1 large, brown, soft-formed BM this shift. 18 G peripheral IV in the RT forearm DC'd due to infiltration. A new 20 G peripheral IV in the LT forearm was inserted this shift. NS is infusing @ 100 ML/HR. VSS. Call light within reach. Will continue to monitor.
[2019-11-24 19:47] VITALS: BP 131/70; PULSE 71; RESP 17; TEMP 37.3; O2SAT 96
[2019-11-24 19:50] VITALS: PULSE 71; RESP 17; O2SAT 96
[2019-11-25] VITALS (14 sets, daily range): BP systolic 112–157; BP diastolic 52–91; PULSE 59–88; RESP 16–19; TEMP 36.6–37.3; O2SAT 95–100; BMI 18.2
--- NOTE | 2019-11-25 04:40 | PC.NURSE ---
shift summary, pt has rested well t/o shift, navarro catheter remains in place draining clear, yellow urine, no complaints this shift, no acute changes
[2019-11-25 06:35] LABS: Chloride 104 mmol/L (98-107); Sodium 139 mmol/L (136-145)
[2019-11-25 06:36] LABS: Potassium 4.4 mmoL/L (3.5-5.1)
[2019-11-25 06:39] LABS: Anion Gap 8.4 mEq/L (5-15); Blood Urea Nitrogen 24 mg/dl (9-20); Calcium 7.8 mg/dl (8.4-10.2); Carbon Dioxide 31 mmol/L (22.0-30.0); Creatinine Clearance Estimated 56 mL/min (50-200); Estimated Glomerular Filt Rate 74 ml/min (>60); GFR (African American) 90 ML/MIN (>60); Glucose 103 mg/dl (74-100)
[2019-11-25 06:45] LABS: Basophils # 0.1 K/mm3 (0-0.2); Basophils % 0.5 % (0.1-2.0); Eosinophils # 0.2 K/mm3 (0.0-0.4); Eosinophils % 0.9 % (0.1-12.0); Hemoglobin 8.1 g/dL (14.1-18.0); Lymphocytes # 1.2 K/mm3 (0.7-4.5); Lymphocytes % 5.8 % (10-50); Mean Corpuscular HGB Conc 32.5 g/dL (31.8-35.4); Mean Corpuscular Hemoglobin 31.3 pg (27.0-31.2); Mean Corpuscular Volume 96.1 fl (80-94); Mean Platelet Volume 7.5 fl (7.4-10.4); Monocytes # 0.6 K/mm3 (0.1-1.0); Monocytes % 3.2 % (1.7-9.3); Neutrophils # 18.2 K/mm3 (1.8-7.8); Neutrophils % 89.6 % (37.0-80.0); Platelet Count 362 K/mm3 (142-424); White Blood Count 20.3 K/mm3 (4.8-10.8)
[2019-11-25 06:49] LABS: MANUAL DIFFERENTIAL MANUAL DIFFERENTIAL (MANUAL DIFF)
[2019-11-25 08:04] LABS: Lymphocytes % 8 % (10-50); Monocytes % 2 % (2-9); Neutrophils % 90 % (42-76); Platelet Estimate Normal; Total Cells Counted 100
[2019-11-25 08:05] LABS: RBC Morphology Normal
--- NOTE | 2019-11-25 10:03 | DIET.NUTRFU ---
Appetite continues to slowly improve. Weight up another 3kg- 5kg total t/o stay.
[2019-11-25 10:05] LABS: Coronavirus 19 IgM Antibody Negative (Negative)
[2019-11-25 10:06] LABS: Coronavirus 19 IgG Antibody Positive (Negative)
--- NOTE | 2019-11-25 10:26 | PC.NURSE ---
patient + igg for covid19 per lab. [facility] director notified and aware. patient still to have procedure today with dr moon or nurse will transport patient at 1030. called blood bank to check status-not ready at this time.
--- NOTE | 2019-11-25 10:40 | PC.NURSE ---
patient transported to OR per [employer] x 2
--- NOTE | 2019-11-25 11:27 | PC.NURSE ---
report called from or eufemia martinez said patient tolerated procedure well. f/c was removed md colin wants patient to try and urinate on own and if cannot if about 3 hours to call md and let him know so he can reevaluate at that time.
--- NOTE | 2019-11-25 12:15 | P.OP_ITS ---
Date of procedure: 11/25/19 Pre-op Diagnosis:: Urinary retention/bilateral hydronephrosis Post-op Diagnosis:: Urinary retention likely secondary to neurogenic bladder Procedure performed:: Cystourethroscopy, voiding trial Surgeon:: Walter Benavides MD Anesthesia: local Estimated blood loss (mL): 0 Clinical Note:: Patient is a 69-year-old white male admitted last week with elevated white count, bladder distention and bilateral hydronephrosis. His white count has continued to be elevated. Urine culture showed E. coli as well as his blood cultures. His creatinine on admission was 3.8 and it has improved to 1.0 with Brunner catheter decompression. Patient gives a history of baseline urinary incontinence. Operative findings:: Prostate did not appear to be obstructing, bladder neck was a little narrow but the 16 Korean scope was slid through without difficulty. The bladder showed severe trabeculation with cellule formation as well as bullous edema from his Brunner catheter. Operative note:: Patient taken to the treatment room on the stretcher. His Brunner catheter was removed. He was prepped and draped in a standard surgical fashion and 2% lidocaine placed into the urethra and the urethra clamped for 5 minutes. After 5 minutes the clamp removed and the flexible cystoscope introduced into the urethral meatus. Passed to the prostatic urethra which was rather short in length and showed no evidence of obstructing lobes or large median lobe. The ureteral orifices in their normal anatomic position. There was some diffuse bullous edema from his Brunner catheter. There was extensive cellule and trabeculation noted throughout the bladder. The bladder appeared to be somewhat Ujan tree shaped on filling. 500 cc was instilled into the patient's bladder and then he was able to stand at the bedside and was only able to void about 50 cc. We discussed that is not emptying well and I believe he has a ne urogenic bladder based on his lack of lips directive pathology. I will give him some more time to try to void and if he cannot we will need to discuss chronic Brunner versus in and out catheterization. Patient lives at a personal long term in [facility]. Condition: stable Disposition: same day Specimens:: None Complications:: None
--- NOTE | 2019-11-25 13:47 | PC.NURSE ---
spoke with dr colin regarding patients output of only 50ml. new orders to reinsert navarro catheter. md said ok to discharge patient back to [facility]. have patient follow up with md in 2 weeks and have the nursing facility change the navarro cath monthly. case managers made aware. will call dr santos to update him as well.
--- NOTE | 2019-11-25 13:53 | SW/DCPLANNER ---
Addendum entered by Meg Rosales 11/25/19 17:03: [facility] has stated a staff member is in route to transport this patient. Addendum entered by Meg [place] 11/25/19 16:41: Patient is ready for discharge at this time. [facility] has stated they can accept this patient back today. I have contacted [facility] to set up transportation for this patient to go back to [facility]. After various conversations with [facility] they have stated that [facility] has been warned several times that this patient is coded to [facility] and they can NOT transport until they fill out appropriate paperwork. [facility] suggested that I contact [facility] to have them transport or fax 30 day override to [facility]. I did speak with Stacie in [facility] whom stated this will be the final 30 day she will send for this patient and paperwork must be completed from [facility] or else patient will only be private pay. I contact [facility] back and they have no receive fax for 30 day override at this time and stated this could take awhile. I contacted Hue with [facility] and she has stated this is not acceptable and she will speak with her boss and send someone from their facility to transport this patient. Hue stated that she would contact me back once someone was on their way to transport patient. Hue is aware that patient is ready for discharge today. Original Note: I have spoke with Hue at [facility] this afternoon. Hue stated they are fine with accepting this patient back with a cath (monthly cath changes). Hue stated that I would need to set patient up with [facility] once stable for discharge. Hue has also stated they would prefer this patient discharge back today or Thursday and not over the weekend. I have made Dr Khoury/Sharon aware of situation. I will continue to follow up with and [facility].
--- NOTE | 2019-11-25 14:05 | PC.NURSE ---
1 uPRBC infused per order. no transfusion reaction noted. vitals wnl.
--- NOTE | 2019-11-25 14:06 | PC.NURSE ---
spoke with demetria about patient discharge plans to discharge patient today after 1hr post infusion labs
--- NOTE | 2019-11-25 14:41 | PC.NURSE ---
navarro cath inserted 14fr coude tip - patient tolerated fair urinalysis obtained and sent to lab
[2019-11-25 14:47] LABS: Microscopic,Cath URINE MICROSCOPIC (MICROSCOPIC)
[2019-11-25 15:15] LABS: Appearance,Urine/Cath CLEAR (Clear); Bilirubin,Cath Negative (Negative); Blood, Urine/Cath 1+ (Negative); Color,Urine/Cath YELLOW (Yellow); Glucose,Urine/Cath (UA) Negative (Negative); Ketones,Urine/Cath Negative (Negative); Leukocyte Esterase,Cath TRACE (Negative); Nitrate,Cath Negative (Negative); Protein,Urine/Cath Negative (Negative); Specific Gravity, Urine/Cath 1.015 (1.005-1.030); Urobilinogen,Cath 0.2 EU/dl (0.2)
[2019-11-25 15:26] LABS: Squamous Epithelial Ur./Cath Occasional #/hpf (0-5)
[2019-11-25 15:46] LABS: Hematocrit 27.9 % (42.0-52.0)
[2019-11-25 15:48] LABS: Hemoglobin 9.4 g/dL (14.1-18.0)
--- NOTE | 2019-11-25 15:56 | HMH.DCSUM ---
General - General Admission date:: 11/17/19 Discharge date: 11/25/19 HPI HPI: Patient is a 69-year-old male with history of schizophrenia currently taking Haldol and Klonopin presenting due to weakness and decreased p.o. intake. Patient states over the past 4 days he has had decreased p.o. intake secondary to decreased appetite. No specific abdominal pain, fever/chills, urination changes, nausea/vomiting, diarrhea/constipation. Caregiver at the bedside also states patient has had increased difficulty walking around. Typically he is able to walk on his own/with a cane and has been much slower over the past several days and has had multiple ground-level falls without any injuries sustained. Patient also currently specifically denies chest pain, shortness of breath, fever/chills, sick contacts. Patient has been in quarantine for the past 14 days. He presents from a personal retirement. CT abdomen performed in ER IMPRESSION: 1. Severe urinary bladder distension with moderate bilateral hydronephrosis and hydroureter 2. Distended gallbladder with cholelithiasis. 3. Constipation with suggestion of rectal fecal impaction 4. Indeterminate 11 mm nodule left lung base. Suggest 3 month follow-up Given iv rocephin, navarro placed, and admitted for further evaluation and treatment Hospital Course Hospital Course: Laboratory Tests 11/17/19 11/17/19 11/17/19 20:05 20:05 20:05 WBC 22.8 H* RBC 3.70 L Hgb 11.9 L Hct 34.4 L MCV 92.9 MCH 32.1 H MCHC 34.6 RDW 13.9 Plt Count 95 L MPV 9.0 Neut % (Auto) 93.6 H Lymph % (Auto) 2.8 L Kern % (Auto) 3.4 Eos % (Auto) 0.0 L Baso % (Auto) 0.1 Neut # (Auto) 21.3 H Lymph # (Auto) 0.6 L Kern # (Auto) 0.8 Eos # (Auto) 0.0 Baso # (Auto) 0.0 Total Counted 100 Neutrophils % (Manual) 89 H Band Neutrophils % Lymphocytes % (Manual) 10 Monocytes % (Manual) 1 L Eosinophils % (Manual) Platelet Estimate Normal RBC Morphology Normal Hypochromasia Poikilocytosis Anisocytosis Acanthocytes (Spur) Sodium 135 L Potassium 3.2 L Chloride 95 L Carbon Dioxide 23 Anion Gap 20.2 H BUN 107 H* Creatinine 3.80 H Estimated Creat Clear 17 Estimated GFR 16 L* Est GFR ( Amer) 19 L* Glucose 153 H Lactate 1.8 Calcium 9.1 Magnesium Total Bilirubin 0.8 AST 102 H ALT 81 H Alkaline Phosphatase 115 Total Creatine Kinase Total Protein 6.7 Albumin 3.5 Globulin 3.2 Albumin/Globulin Ratio 1.1 Lipase Urine Color Urine Appearance Urine pH Ur Specific Delray Urine Protein Urine Glucose (UA) Urine Ketones Urine Blood Urine Nitrate Urine Bilirubin Urine Urobilinogen Ur Leukocyte Esterase Urine RBC Urine WBC Ur Squamous Epith Cells Urine Bacteria Urine Osmolality SARS-CoV-2 IgG Ab (Rapid) SARS-CoV-2 IgM Ab (Rapid) Blood Type Blood Type Confirm Antibody Screen Crossmatch ([facility]) 11/17/19 11/17/19 11/17/19 20:05 20:05 20:53 WBC RBC Hgb Hct MCV MCH MCHC RDW Plt Count MPV Neut % (Auto) Lymph % (Auto) Kern % (Auto) Eos % (Auto) Baso % (Auto) Neut # (Auto) Lymph # (Auto) Kern # (Auto) Eos # (Auto) Baso # (Auto) Total Counted Neutrophils % (Manual) Band Neutrophils % Lymphocytes % (Manual) Monocytes % (Manual) Eosinophils % (Manual) Platelet Estimate RBC Morphology Hypochromasia Poikilocytosis Anisocytosis Acanthocytes (Spur) Sodium Potassium Chloride Carbon Dioxide Anion Gap BUN Creatinine Estimated Creat Clear Estimated GFR Est GFR ( Amer) Glucose Lactate Calcium Magnesium 2.7 H Total Bilirubin AST ALT Alkaline Phosphatase Total Creatine Kinase 394 H
--- NOTE | 2019-11-25 16:50 | PC.NURSE ---
patient to be discharge back to personal [facility] in [place] director juli called and updated about patient condition per human services case manager. discharge paper work went over with patient, no questions. piv to lfa removed dsd applied. patient tolerated well.
== END 2019-11-25 17:50 | disposition home or self-care (01) | DRG 725 ==
LOC: ER 21:45 → 2ND 22:04
PROVIDERS: Emergency Medicine; Nurse Practitioner Family; Urology; Admitting Provider Family Medicine; Emergency Provider Emergency Medicine; PCP Nurse Practitioner Family; Visit Provider Family Medicine
DX: E43 Unspecified severe protein-calorie malnutrition (principal); A41.51 Sepsis due to Escherichia coli [E. coli]; N39.0 Urinary tract infection, site not specified; N17.9 Acute kidney failure, unspecified; Z68.1 Body mass index [BMI] 19.9 or less, adult; N40.1 Benign prostatic hyperplasia with lower urinary tract symptoms; N13.8 Other obstructive and reflux uropathy; F20.9 Schizophrenia, unspecified; K80.20 Calculus of gallbladder without cholecystitis without obstruction; D69.6 Thrombocytopenia, unspecified; Z86.19 Personal history of other infectious and parasitic diseases; Z79.899 Other long term (current) drug therapy; Z79.82 Long term (current) use of aspirin
CPT/HCPCS: 52000; 36415; 70450; 71046; 74176; 80048; 80053; 81001; 82550; 83605; 83690; 83735; 83935; 85007; 85014; 85018; 85025; 86328; 86850; 87040; 87077; 87086; 87088; 87186; 93005; 96365; 96375; 99285; J1956; P9016